=== PATIENT | male | born 1970 | race Caucasian/White ===

== ENCOUNTER 2024-03-19 05:16 | Inpatient (IN) | payer BC ==
--- NOTE | 2024-03-19 05:35 | ED ---
General Adult HPI - General Source: patient, RN notes reviewed, old records reviewed Mode of arrival: wheelchair Limitations: no limitations <Wes Montejo - Last Filed: 03/19/24 06:58> <Raul Mayberry - Last Filed: 03/19/24 11:11> - General Chief complaint: Chest Pain Stated complaint: Chest Pain Time Seen by Provider: 03/19/24 05:22 - History of Present Illness Initial comments: 53-year-old male presenting with left-sided chest pain radiating into the left shoulder. Pain is present over the past 1 to 2 days but significantly worse this morning. Pain is worse with inspiration. He has no prior history of CAD, no history of DVT or PE. Denies associated nausea or vomiting, no abdominal pain. Patient is a non-smoker. No lower extremity pain or swelling. (Wes Montejo) - Related Data Allergies Allergy/AdvReac Type Severity Reaction Status Date / Time cefpodoxime AdvReac Chest Pain Verified 03/19/24 05:21 Review of Systems ROS Other: All systems not noted in ROS Statement are negative. <Wes Montejo - Last Filed: 03/19/24 06:58> ROS Other: All systems not noted in ROS Statement are negative. <Raul Mayberry - Last Filed: 03/19/24 11:11> ROS Statement: Those systems with pertinent positive or pertinent negative responses have been documented in the HPI. Past Medical History Additional Past Medical History / Comment(s): BPH with IDC History of Any Multi-Drug Resistant Organisms: None Reported Past Surgical History: No Surgical Hx Reported Past Psychological History: No Psychological Hx Reported Smoking Status: Never smoker Past Alcohol Use History: None Reported Past Drug Use History: None Reported <Wes Montejo - Last Filed: 03/19/24 06:58> General Exam Limitations: no limitations General appearance: alert, in no apparent distress Head exam: Present: atraumatic, normocephalic Eye exam: Present: normal appearance, PERRL ENT exam: Present: normal exam Neck exam: Present: normal inspection Respiratory exam: Present: normal lung sounds bilaterally. Absent: respiratory distress, wheezes Cardiovascular Exam: Present: regular rate, normal rhythm GI/Abdominal exam: Present: soft. Absent: distended, tenderness Extremities exam: Present: normal inspection, normal capillary refill. Absent: pedal edema, calf tenderness Neurological exam: Present: alert, oriented X3, CN II-XII intact. Absent: motor sensory deficit Skin exam: Present: warm, dry <GustaboWes Arnie - Last Filed: 03/19/24 06:58> Course Vital Signs 03/19/24 03/19/24 03/19/24 05:17 05:34 07:00 Temperature 98.1 F 98.4 F Pulse Rate 93 96 Pulse Rate [ 93 Left Sitting Radial] Respiratory 18 22 Rate Blood Pressure 137/92 140/98 O2 Sat by Pulse 100 94 L Oximetry 03/19/24 03/19/24 07:32 09:52 Temperature Pulse Rate 96 84 Pulse Rate [ Left Sitting Radial] Respiratory 16 16 Rate Blood Pressure 122/90 114/80 O2 Sat by Pulse 92 L 97 Oximetry Medical Decision Making - Lab Data Result diagrams: 03/19/24 05:37 03/19/24 05:37 <Wes Montejo - Last Filed: 03/19/24 06:58> - Lab Data Result diagrams: 03/19/24 05:37 03/19/24 05:37 <Raul Mayberry - Last Filed: 03/19/24 11:11> - Medical Decision Making Was pt. sent in by a medical professional or institution (KRISTI Dillon, COMMUNITY DEVELOPMENT WORKER, urgent care, hospital, or group home...) When possible be specific @ -No Did you speak to anyone other than the patient for history (EMS, parent, family, police, friend...)? What history was obtained from this source @ -No Did you review nursing and triage notes (agree or disagree)? Why? @ -I reviewed and agree with nursing and triage notes Were old charts reviewed (outside hosp., previous admission, EMS record, old EKG, old radiological studies, urgent care reports/EKG's, group home records)? Report findings @ -No old charts were reviewed Differential Chest Pain: Stable Angina, Unstable Angina, STEMI, NSTEMI Aortic Dissection, Pneumothorax, Musculoskeletal, Esophageal Spasm GERD, Cholecystitis, Pancreatitis, Zoster, this is not meant to be an all-inclusive list. EKG interpreted by me (3pts min.). @ -Sinus rhythm rate of 99, MS interval 153, QRS duration 85, QTc 401, no ST segment elevation EKG at 621 showing sinus rhythm with a rate of 89, MS interval 155, QRS duration 86, QTc [address] segment elevation. X-rays interpreted by me (1pt min.). @ -None done CT interpreted by me (1pt min.). @ -CT angiography has been ordered, results pending U/S interpreted by me (1pt. min.). @ -None done What testing was considered but not performed or refused? (CT, X-rays, U/S, labs)? Why? @ -None What meds were considered but not given or refused? Why? @ -None Did you discuss the management of the patient with other professionals (professionals i.e. DrNichole, PA, COMMUNITY DEVELOPMENT WORKER, lab, RT, psych nurse, social services designee, bariatric nurse, teacher, financial officer, caser)? Give summary @ -No Was smoking cessation discussed for >3mins.? @ -No Was critical care preformed (if so, how long)? @ -No Were there social determinants of health that impacted care today? How? (Homelessness, low income, unemployed, alcoholism, drug addiction, transpo rtation, low edu. Level, literacy, decrease access to med. care, [facility] [facility], rehab)? @ -No Was there de-escalation of care discussed even if they declined (Discuss DNR or withdrawal of care, Hospice)? DNR status @ -No What co-morbidities impacted this encounter? (DM, HTN, Smoking, COPD, CAD, Cancer, CVA, ARF, Chemo, Hep., AIDS, mental health diagnosis, sleep apnea, morbid obesity)? @ -None Was patient admitted / discharged? Hospital course, mention meds given and route, prescriptions, significant lab abnormalities, going to OR and other pertinent info. @53-year-old male with left-sided chest pain, worse with inspiration, EKG is sinus without ST segment elevation this is repeated in the emergency department without change. Patient has normal CBC, normal CMP, positive D-dimer. There is concern for PE as well as aortic pathology. CT has been ordered results are pending. Care is signed out at shift change to Dr. Mayberry awaiting these results. (Wes Montejo) Was patient admitted / discharged? Hospital course, mention meds given and route, prescriptions, significant lab abnormalities, going to OR and other pertinent info. @ -Patient was signed out to me by Dr. Montejo. Patient's CAT scan was interpreted by myself but patient's CAT scan showed no aortic dissection. Showed no pulmonary embolism. I reviewed the radiology study as well and they agreed with that. Patient does have a left-sided lower lobe pneumonia. Patient will be treated with antibiotics. I spoke with sound physicians they agreed to admit the patient admit the patient wrote admitting orders. I consulted pulmonary. I also consulted urology because patient has a Ramos cath in secondary to a prostate issue and patient was septic previously for urinary tract infection. Patient was in severe pain when he arrived secondary to pneumonia. Patient did not want to go home he was concerned the pain will come back and be as severe as it was earlier. Undiagnosed new problem with uncertain prognosis? @ -No Drug Therapy requiring intensive monitoring for toxicity (Heparin, Nitro, Insulin, Cardizem)? @ -No Were any procedures done? @ -No Diagnosis/symptom? @ -Pneumonia Acute, or Chronic, or Acute on Chronic? @ -Acute Uncomplicated (without systemic symptoms) or Complicated (systemic symptoms)? @ -Complicated Side effects of treatment? @ -No Exacerbation, Progression, or Severe Exacerbation? @ -No Poses a threat to life or bodily function? How? (Chest pain, USA, PA, pneumonia, PE, COPD, DKA, ARF, appy, cholecystitis, CVA, Diverticulitis, Homicidal, Suicidal, threat to staff... and all critical care pts) @ -Yes this could lead to sepsis and endorgan dysfunction (Raul Mayberry) - Lab Data Lab Results 03/19/24 03/19/24 03/19/24 Range/Units 05:37 05:37 05:37 WBC 12.1 H (3.8-10.6) k/uL RBC 5.22 (4.30-5.90) m/uL Hgb 15.1 (13.0-17.5) gm/dL Hct 46.9 (39.0-53.0) % MCV 89.8 (80.0-100.0) fL MCH 29.0 (25.0-35.0) pg MCHC 32.3 (31.0-37.0) g/dL RDW 12.6 (11.5-15.5) % Plt Count 219 (150-450) k/uL MPV 7.9 Neutrophils % 77 % Lymphocytes % 14 % Monocytes % 6 % Eosinophils % 1 % Basophils % 1 % Neutrophils # 9.4 H (1.3-7.7) k/uL Lymphocytes # 1.7 (1.0-4.8) k/uL Monocytes # 0.7 (0-1.0) k/uL Eosinophils # 0.2 (0-0.7) k/uL Basophils # 0.1 (0-0.2) k/uL PT 11.1 (10.0-12.5) sec INR 1.0 (<1.2) APTT 24.1 (22.0-30.0) sec D-Dimer 2.93 H (<0.60) mg/L FEU Sodium 140 (137-145) mmol/L Potassium 4.4 (3.5-5.1) mmol/L Chloride 108 H (98-107) mmol/L Carbon Dioxide 23 (22-30) mmol/L Anion Gap 9 mmol/L BUN 18 (9-20) mg/dL Creatinine 1.00 (0.66-1.25) mg/dL Est GFR (CKD-EPI)AfAm >90 (>60 ml/min/1.73 sqM) Est GFR (CKD-EPI)NonAf 87 (>60 ml/min/1.73 sqM) Glucose 111 H (74-99) mg/dL Plasma Lactic Acid Louis (0.7-2.0) mmol/L Calcium 9.4 (8.4-10.2) mg/dL Magnesium 1.9 (1.6-2.3) mg/dL Total Bilirubin 0.9 (0.2-1.3) mg/dL AST 27 (17-59) U/L ALT 35 (4-49) U/L Alkaline Phosphatase 92 (38-126) U/L Troponin I (0.000-0.034) ng/mL Total Protein 7.1 (6.3-8.2) g/dL Albumin 4.2 (3.5-5.0) g/dL Lipase 271 (23-300) U/L Urine Color Urine Appearance (Clear) Urine pH (5.0-8.0) Ur Specific [place] (1.001-1.035) Urine Protein (Negative) Urine Glucose (UA) (Negative) Urine Ketones (Negative) Urine Blood (Negative) Urine Nitrite (Negative) Urine Bilirubin (Negative) Urine Urobilinogen (<2.0) mg/dL Ur Leukocyte Esterase (Negative) 03/19/24 03/19/24 03/19/24 Range/Units 05:37 07:45 10:03 WBC (3.8-10.6) k/uL RBC (4.30-5.90) m/uL Hgb (13.0-17.5) gm/dL Hct (39.0-53.0) % MCV (80.0-100.0) fL MCH (25.0-35.0) pg MCHC (31.0-37.0) g/dL RDW (11.5-15.5) % Plt Count (150-450) k/uL MPV Neutrophils % % Lymphocytes % % Monocytes % % Eosinophils % % Basophils % % Neutrophils # (1.3-7.7) k/uL Lymphocytes # (1.0-4.8) k/uL Monocytes # (0-1.0) k/uL Eosinophils # (0-0.7) k/uL Basophils # (0-0.2) k/uL PT (10.0-12.5) sec INR (<1.2) APTT (22.0-30.0) sec D-Dimer (<0.60) mg/L FEU Sodium (137-145) mmol/L Potassium (3.5-5.1) mmol/L Chloride (98-107) mmol/L Carbon Dioxide (22-30) mmol/L Anion Gap mmol/L BUN (9-20) mg/dL Creatinine (0.66-1.25) mg/dL Est GFR (CKD-EPI)AfAm (>60 ml/min/1.73 sqM) Est GFR (CKD-EPI)NonAf (>60 ml/min/1.73 sqM) Glucose (74-99) mg/dL Plasma Lactic Acid Louis 1.7 (0.7-2.0) mmol/L Calcium (8.4-10.2) mg/dL Magnesium (1.6-2.3) mg/dL Total Bilirubin (0.2-1.3) mg/dL AST (17-59) U/L ALT (4-49) U/L Alkaline Phosphatase (38-126) U/L Troponin I <0.012 (0.000-0.034) ng/mL Total Protein (6.3-8.2) g/dL Albumin (3.5-5.0) g/dL Lipase (23-300) U/L Urine Color Light Yellow Urine Appearance Clear (Clear) Urine pH 7.5 (5.0-8.0) Ur Specific [place] >1.050 H (1.001-1.035) Urine Protein Trace H (Negative) Urine Glucose (UA) Negative (Negative) Urine Ketones Negative (Negative) Urine Blood Negative (Negative) Urine Nitrite Negative (Negative) Urine Bilirubin Negative (Negative) Urine Urobilinogen <2.0 (<2.0) mg/dL Ur Leukocyte Esterase Negative (Negative) Critical Care Time Critical Care Time: Yes Total Critical Care Time: 35 <Raul Mayberry - Last Filed: 03/19/24 11:11> Disposition <Wes Montejo - Last Filed: 03/19/24 06:58> Time of Disposition: 11:10 <Raul Mayberry - Last Filed: 03/19/24 11:11> Clinical Impression: Pneumonia Disposition: ADMITTED IP TO THIS HOSP Referrals: None,Stated [Primary Care Provider] - 1-2 days
[2024-03-19] MEDS: HYDROmorphone 0.5 MG/0.5 ML SYRINGE IVP STA (05:40)
[2024-03-19 05:53] LABS: Basophils # (A) 0.1 k/uL (0-0.2); Basophils % (A) 1 %; Eosinophils # (A) 0.2 k/uL (0-0.7); Eosinophils % (A) 1 %; HCT 46.9 % (39.0-53.0); HGB 15.1 gm/dL (13.0-17.5); Lymphocytes # (A) 1.7 k/uL (1.0-4.8); Lymphocytes % (A) 14 %; MCHC 32.3 g/dL (31.0-37.0); MCV 89.8 fL (80.0-100.0); Mean Platelet Volume 7.9; Monocytes # (A) 0.7 k/uL (0-1.0); Monocytes % (A) 6 %; Neutrophils # (A) 9.4 k/uL (1.3-7.7); Neutrophils % (A) 77 %; Platelet Count 219 k/uL (150-450); RBC 5.22 m/uL (4.30-5.90); RDW 12.6 % (11.5-15.5); WBC 12.1 k/uL (3.8-10.6)
[2024-03-19 06:16] LABS: Partial Thromboplastin Time 24.1 sec (22.0-30.0); Prothrombin Time 11.1 sec (10.0-12.5)
[2024-03-19 06:23] LABS: ALT 35 U/L (4-49); AST 27 U/L (17-59); African American GFR (CKD) >90 (>60 ml/min/1.73 sqM); Albumin 4.2 g/dL (3.5-5.0); Alkaline Phosphatase 92 U/L (38-126); Anion Gap 9 mmol/L; Blood Urea Nitrogen 18 mg/dL (9-20); Calcium 9.4 mg/dL (8.4-10.2); Carbon Dioxide 23 mmol/L (22-30); Chloride 108 mmol/L (98-107); Glucose 111 mg/dL (74-99); Lipase 271 U/L (23-300); Magnesium 1.9 mg/dL (1.6-2.3); Non-African American GFR(CKD) 87 (>60 ml/min/1.73 sqM); Potassium 4.4 mmol/L (3.5-5.1); Sodium 140 mmol/L (137-145); Total Bilirubin 0.9 mg/dL (0.2-1.3); Total Protein 7.1 g/dL (6.3-8.2)
[2024-03-19] MEDS: HYDROmorphone 1 MG/ML 1 ML SYRINGE IVP STA (06:44)
[2024-03-19] MEDS: LORazepam 2 MG/ML INJ IV STA (06:58)
--- NOTE | 2024-03-19 07:08 | XR ---
EXAM: XR Chest, 2 Views CLINICAL HISTORY: Chest Pain TECHNIQUE: Frontal and lateral views of the chest. COMPARISON: No relevant prior studies available. FINDINGS: Lungs: Lung volumes are within normal limits. There is no evidence of airspace consolidation. No pulmonary edema. Minimal atelectasis or scarring in the lingula. Pleural space: Unremarkable. No pneumothorax. No significant pleural effusions. Heart: Unremarkable. No cardiomegaly. Mediastinum: Unremarkable. Normal mediastinal contour. Bones/joints: Unremarkable. No acute fracture. IMPRESSION: There is no evidence of acute cardiopulmonary abnormality.
--- NOTE | 2024-03-19 07:37 | CT ---
EXAMINATION TYPE: CT angio thor/abd pel aorta CT DLP: 2648.8 mGycm, Automated exposure control for dose reduction was used. DATE OF EXAM: 03/19/2024 7:28 AM COMPARISON: Same day chest x-ray. CLINICAL INDICATION:Male, 53 years old with history of Elevated Dimer; PHH, mid chest pain, elevated d dimer. best imaging due to patient pain level and breathing pattern. prior xr in pacs TECHNIQUE: Dissection protocol: Multiple axial CT images of the chest, abdomen, and pelvis were obtai chetan prior and to the administration of IV contrast. 3-D reformats and maximum intensity projection fo rmat were performed on a separate workstation. Contrast used:100 ml mL of Isovue 370 with IV Contrast, Oral contrast used: FINDINGS: Examinations are limited by patient motion and streak artifacts. ARTERIAL VASCULATURE: The thoracic aorta is normal in course and caliber. There is no evidence of aor tic dissection, aneurysm or acute aortic injury. Great arch vessels patent and normal in course and c aliber. Abdominal aorta appears within normal limits, there is no evidence of aneurysm or dissection. Unremar kable proximal mesenteric and renal arteries. Normal aortic bifurcation. Visualized iliofemoral syste ms are within normal limits. PULMONARY ARTERIAL VASCULATURE: Exam is not tailored for the pulmonary arteries. The pulmonary trunk appears enlarged measuring 3.7 cm. No large saddle/central embolus is seen. Evaluation further periph erally is limited. VENOUS SYSTEM: Unremarkable. Lungs/pleura: There is respiratory motion artifact. Opacity most suggestive of dependent atelectasis in the right lower lung. Opacity in the left lower lung appears more conspicuous and suspicious for p ossible pneumonic infiltrate. There does appear to be a small left pleural effusion, and possible tra ce right pleural effusion. No visualized pneumothorax. Heart: Within normal limits. Mediastinum: No enlarged nodes by CT size criteria. Lower Neck: No significant findings. Thyroid appears grossly unremarkable. Abdomen: Liver: Unremarkable. Gallbladder and Bile ducts: Unremarkable. Pancreas: Unremarkable. Spleen: Unremarkable. Adrenal glands: Unremarkable. Kidneys and Ureters: Kidneys enhance symmetrically. There is no mass or visualized calculus. Mildly p rominent left extrarenal pelvis without dilated ureter.. Bladder: Mildly distended despite the presence of a Ramos balloon and catheter within the lumen.. Reproductive: Prostate appears enlarged measuring about 5.4 cm transverse.. Stomach and Bowel: Stomach and small bowel appear nondistended.. No evidence of bowel obstruction. B ubble of gas of the duodenum versus diverticulum. Normal appendix. Mild/moderate stool throughout the colon without acute abnormality seen. Peritoneum: No evidence of pneumoperitoneum, free fluid, or adenopathy. Musculoskeletal: Moderate degenerative changes of the right glenohumeral joint with postoperative lianet nges. Mild degenerative change of the left. Mild degenerative changes of the thoracolumbar spine with out evidence of an acute abnormality. There is likely step-off artifact in the sternal body and not f racture. Lymph nodes: No evidence of lymphadenopathy. Abdominal wall/soft tissues: Unremarkable. IMPRESSION: 1. No evidence of aortic dissection or aneurysm. 2. Enlarged pulmonary trunk, can be seen with pulmonary hypertension. 3. Possible pneumonic infiltrate or aspiration in the left lung base. Small left pleural effusion. 4. No acute abnormality detected within the abdomen or pelvis.
[2024-03-19] MEDS: PIPERACILLIN-TAZOBACTAM 3.375 GM in SODIUM CHLORIDE 0.9% 100 ML IVPB STA (08:12)
[2024-03-19] MEDS: ACETAMINOPHEN IV (For NPO) 1,000 MG in EMPTY BAG 1 BAG IVPB ONE (08:12)
[2024-03-19] MEDS: SODIUM CHLORIDE 0.9% 1,000 ML IV SCH (08:13)
[2024-03-19] MEDS: KETOROLAC 15 MG/ML 1 ML VIAL IVP STA (09:46)
[2024-03-19] MEDS: AZITHROMYCIN 500 MG in SODIUM CHLORIDE 0.9% 250 ML IVPB STA (09:51)
[2024-03-19 10:26] LABS: Appearance,Urine Clear (Clear); Bilirubin,Urine Negative (Negative); Blood,Urine Negative (Negative); Color,Urine Light Yellow; Glucose,Urine (UA) Negative (Negative); Ketones,Urine Negative (Negative); Leukocyte Esterase,Urine Negative (Negative); Nitrite,Urine Negative (Negative); PH, Urine 7.5 (5.0-8.0); Protein,Urine Trace (Negative); Specific Gravity,Urine >1.050 (1.001-1.035); Urobilinogen,Urine <2.0 mg/dL (<2.0)
[2024-03-19] MEDS ORDERED: PNEUMONIA PROTOCOL UTILIZED 1 EACH MISC PO PRN (11:11)
--- NOTE | 2024-03-19 13:06 | P.GSCN ---
History of Present Illness Consult date: 03/19/24 History of present illness: 53 yo male admitted for left sided chest pain secondary to pneumonia. We were asked to see for a recent history of uti and urine retention. About 1 mos ago he presented to [facility]. He was diagnosed with a uti. He ended up at [facility] with urine retention and a subsequent catheter. The catheter was removed only for him to go back into retention. He was given about 10 days of ab. He states that he had an elevated temperature when he first had the uti. He never had voiding issues prior to the uti. He was eventually placed on flomax. He has been healthy for years. He hasnt seen a doctor for years. He denies hematuria or stones. Review of Systems All systems: negative - Constitutional Denies fever, Denies weight loss - EENT Eyes: denies blurred vision Ears, nose, mouth and throat: Denies dysphagia - Cardiovascular Denies chest pain, Denies shortness of breath - Respiratory Denies cough, Denies 7 - Gastrointestinal Reports as per HPI - Genitourinary Denies dysuria, Denies hematuria - Integumentary Denies rash, Denies unusual bruising - Neurological Denies headaches, Denies syncope - Hematologic/Lymphatic Denies easy bleeding, Denies easy bruising Past Medical History Additional Past Medical History / Comment(s): BPH with IDC History of Any Multi-Drug Resistant Organisms: None Reported Past Surgical History: No Surgical Hx Reported Past Psychological History: No Psychological Hx Reported Smoking Status: Never smoker Past Alcohol Use History: None Reported Past Drug Use History: None Reported Medications and Allergies Home Medications Medication Instructions Recorded Confirmed Type Ciprofloxacin HCl [Cipro] 250 mg PO BID 03/19/24 03/19/24 History Tamsulosin [Flomax] 0.4 mg PO BID 03/19/24 03/19/24 History Allergies Allergy/AdvReac Type Severity Reaction Status Date / Time cefpodoxime AdvReac Chest Pain Verified 03/19/24 12:33 Surgical - Exam Vital Signs Temp Pulse Resp BP Pulse Ox 98.1 F 93 18 137/92 100 03/19/24 05:17 03/19/24 05:17 03/19/24 05:17 03/19/24 05:17 03/19/24 05:17 - General well developed, well nourished, no distress - Eyes normal ocular movement, no icteric - ENT no hearing loss, no congestion - Neck no masses, trachea midline - Respiratory normal respiratory effort, clear to auscultation - Abdomen Abdomen: soft, non tender, no guarding, no rigid, no rebound - Integumentary no rash, no abnormal pigmentation - Neurologic no disoriented, no combative - Psychiatric oriented to time, oriented to person, oriented to place, speech is normal, memory intact Results - Labs 03/19/24 05:37 03/19/24 05:37 Abnormal Lab Results - Last 24 Hours (Table) 03/19/24 03/19/24 03/19/24 Range/Units 05:37 05:37 05:37 WBC 12.1 H (3.8-10.6) k/uL Neutrophils # 9.4 H (1.3-7.7) k/uL D-Dimer 2.93 H (<0.60) mg/L FEU Chloride 108 H (98-107) mmol/L Glucose 111 H (74-99) mg/dL Ur Specific [place] (1.001-1.035) Urine Protein (Negative) 03/19/24 Range/Units 10:03 WBC (3.8-10.6) k/uL Neutrophils # (1.3-7.7) k/uL D-Dimer (<0.60) mg/L FEU Chloride (98-107) mmol/L Glucose (74-99) mg/dL Ur Specific [place] >1.050 H (1.001-1.035) Urine Protein Trace H (Negative) Diabetes panel 03/19/24 Range/Units 05:37 Sodium 140 (137-145) mmol/L Potassium 4.4 (3.5-5.1) mmol/L Chloride 108 H (98-107) mmol/L Carbon Dioxide 23 (22-30) mmol/L BUN 18 (9-20) mg/dL Creatinine 1.00 (0.66-1.25) mg/dL Glucose 111 H (74-99) mg/dL Calcium 9.4 (8.4-10.2) mg/dL AST 27 (17-59) U/L ALT 35 (4-49) U/L Alkaline Phosphatase 92 (38-126) U/L Total Protein 7.1 (6.3-8.2) g/dL Albumin 4.2 (3.5-5.0) g/dL Calcium panel 03/19/24 Range/Units 05:37 Calcium 9.4 (8.4-10.2) mg/dL Albumin 4.2 (3.5-5.0) g/dL Pituitary panel 03/19/24 Range/Units 05:37 Sodium 140 (137-145) mmol/L Potassium 4.4 (3.5-5.1) mmol/L Chloride 108 H (98-107) mmol/L Carbon Dioxide 23 (22-30) mmol/L BUN 18 (9-20) mg/dL Creatinine 1.00 (0.66-1.25) mg/dL Glucose 111 H (74-99) mg/dL Calcium 9.4 (8.4-10.2) mg/dL Adrenal panel 03/19/24 Range/Units 05:37 Sodium 140 (137-145) mmol/L Potassium 4.4 (3.5-5.1) mmol/L Chloride 108 H (98-107) mmol/L Carbon Dioxide 23 (22-30) mmol/L BUN 18 (9-20) mg/dL Creatinine 1.00 (0.66-1.25) mg/dL Glucose 111 H (74-99) mg/dL Calcium 9.4 (8.4-10.2) mg/dL Total Bilirubin 0.9 (0.2-1.3) mg/dL AST 27 (17-59) U/L ALT 35 (4-49) U/L Alkaline Phosphatase 92 (38-126) U/L Total Protein 7.1 (6.3-8.2) g/dL Albumin 4.2 (3.5-5.0) g/dL Assessment and Plan Assessment: Impression: pneumonia. acute prostatitis with seconday urine retention Recommendations: It sounds as if his prostattits was not treated long enough. Urine retention is not uncommon associated with the acute swelling and discomfort associated with prostatitis. Given the description of his event he would need at least 30 days of ab usually cipro or bactrim would be the best choice if the bacteria is susceptible to these ab as they have the best penetration into the prostate. I would leave him on the floamx. He should get a voiding trial before he goes home to make sure he can empty his bladder. We w ill follow Time with Patient: Greater than 30 (1)
--- NOTE | 2024-03-19 13:08 | P.HPIM ---
History of Present Illness H&P Date: 03/19/24 History of Presenting Illness: Patient is a very pleasant 53-year-old male with a past medical history of BPH and currently Ramos catheter dependent after recent hospitalization for urosepsis secondary to acute prostatitis with urinary retention. He presented to the hospital with a chief complaint of left-sided chest pain. Patient reports intermittent left-sided chest pain waxing and waning over the past 2 months and initially associated it as an adverse reaction to an antibiotic because when he stopped taking the antibiotic his pain went away, however patient reports yesterday he again developed significant pain to left anterior chest radiating up into his left shoulder. Patient reports pain is worse with inspiration and lying down. He reports pain was so severe he was pacing the floor all night and upon telling his this morning she brought him to the hospital concerned that he was having a heart attack. Patient denies having any cough or congestion, shortness of breath, palpitations, fevers, chills, diaphoresis, headache, lightheadedness, nausea, vomiting, or experiencing any numbness/tingling/weakness/swelling in his extremities. Upon arrival to our facility, patient underwent evaluation in the emergency department. Vital signs reviewed. Blood pressure 137/92, heart rate 93, respiratory rate 18, temp 98.1 F, and SpO2 100% on room air. EKG completed showing normal sinus rhythm beats per minute no significant T wave or ST abnormalities upon personal review and interpretation showing prominent Q waves inferior leads II, III, and aVF as well as lateral leads V5 and V6. Chest x-ray completed negative for acute cardiopulmonary process. Labs completed and reviewed. CBC showing leukocytosis with WBC count of 12.1. BMP showing hyperchloremia with chloride of 108. Blood glucose was 111. Lactic acid normal findings at 1.7. Magnesium 1.9. Liver profile unremarkable. Lipase normal findings at 271. And troponin was negative at less than 0.012. Coagulation profile showing elevated D-dimer of 2.93. Patient underwent CTA chest showing no large or saddlebag/central emboli is noted but reporting enlarged pulmonary trunk with concerns of pneumonic infiltrate in the left lung base with small left pleural effusion. Patient admitted under our services with consultation to pulmonology at this time. Review of systems: Pertinent positives and negatives as discussed in HPI, a complete review of systems was performed and all other systems are negative. Physical exam: Vital signs reviewed and stable. General: Nontoxic, no distress and appears stated age. Derm: Skin warm and dry, normal coloration for ethnicity. Head: Atraumatic, normocephalic and symmetric. Eyes: EOMs intact, no lid lag, and anicteric sclera Mouth: no lip lesions, mucus membranes moist Cardiovascular: regular rate and rhythm with normal S1S2, no murmur, positive posterior tibial pulses bilaterally, and cap refill < 2 seconds. Lungs: Respirations even, regular, and unlabored on room air. Lungs CTA bilaterally, no rhonchi, no rales, no wheezing, and no accessory muscle usage. Reproducible pain to anterior left lateral chest reported upon inspiration and palpation. Abdominal: soft, nontender to palpation, no guarding, no appreciable organome mariya. Indwelling Ramos catheter in place. Ext: ROM intact. No gross muscle atrophy, no edema, no contractures Neuro: Speech clear, face symmetrical and CN II-XII grossly intact with no noted focal neuro deficits Psych: Alert and oriented to person, place, time, and situation. Appropriate and pleasant affect. Assessment and Plan of Care: Pneumonic infiltrate likely pneumonia left lower lobe Chest pain, likely secondary to pleurisy and costochondritis -Oxygenation to be administered and titrated as needed to maintain SPO2 equal to or greater than 92% -Telemetry monitoring. -Monitor pulse-oximetry -Duonebs as needed for SOB and/or wheezing -Somatic care and pain management with Tylenol 650 mg p.o. mild pain/fever, [place] 5/325 mg tablets as needed for moderate pain, and morphine 4 mg IVP every 4 hours as needed for severe pain -Incentive Spirometry -Antibiotics: Ceramics 500 mg daily and Zosyn 3.375 g every 8 hours. -Sputum culture, blood cultures, Legionella antigen -Pulmonary was consulted Acute prostatitis with urinary retention BPH with bladder outlet obstruction and currently Ramos catheter dependent Urology was consulted, appreciate recommendations. Continue Flomax 0.4 mg twice daily. CODE STATUS: Full code DVT prophylaxis: Lovenox Anticipated discharge date: Pending clinical course Anticipated discharge place: Pending clinical course Patient was seen independently by Nurse Practitioner. This document was prepared using [employer] dictation software. Please allow for errors in professor of communication and writing while rare they do occur. I reviewed the documentation as provided by the ARTURO above, who is the original author of this note. I agree with the documented assessment and plan, with the following changes: none Past Medical History Additional Past Medical History / Comment(s): BPH with IDC History of Any Multi-Drug Resistant Organisms: None Reported Past Surgical History: No Surgical Hx Reported Past Psychological History: No Psychological Hx Reported Smoking Status: Never smoker Past Alcohol Use History: None Reported Past Drug Use History: None Reported Medications and Allergies Home Medications Medication Instructions Recorded Confirmed Type Ciprofloxacin HCl [Cipro] 250 mg PO BID 03/19/24 03/19/24 History Tamsulosin [Flomax] 0.4 mg PO BID 03/19/24 03/19/24 History Allergies Allergy/AdvReac Type Severity Reaction Status Date / Time cefpodoxime AdvReac Chest Pain Verified 03/19/24 12:33 Physical Exam Osteopathic Statement: *. No significant issues noted on an osteopathic structural exam other than those noted in the History and Physical/Consult. Vitals: Vital Signs Temp Pulse Pulse Resp BP Pulse Ox 03/19/24 09:52 84 16 114/80 97 03/19/24 07:32 96 16 122/90 92 L 03/19/24 07:00 98.4 F 96 22 140/98 94 L 03/19/24 05:34 93 03/19/24 05:17 98.1 F 93 18 137/92 100 Intake and Output 03/18/24 03/19/24 03/19/24 22:59 06:59 14:59 Other: Weight 106.141 kg Results CBC & Chem 7: 03/19/24 05:37 03/19/24 05:37 Labs: Abnormal Lab Results - Last 24 Hours (Table) 03/19/24 03/19/24 03/19/24 Range/Units 05:37 05:37 05:37 WBC 12.1 H (3.8-10.6) k/uL Neutrophils # 9.4 H (1.3-7.7) k/uL D-Dimer 2.93 H (<0.60) mg/L FEU Chloride 108 H (98-107) mmol/L Glucose 111 H (74-99) mg/dL Ur Specific [place] (1.001-1.035) Urine Protein (Negative) 03/19/24 Range/Units 10:03 WBC (3.8-10.6) k/uL Neutrophils # (1.3-7.7) k/uL D-Dimer (<0.60) mg/L FEU Chloride (98-107) mmol/L Glucose (74-99) mg/dL Ur Specific [place] >1.050 H (1.001-1.035) Urine Protein Trace H (Negative)
[2024-03-19] MEDS: HYDROcodone/APAP 5-325MG 1 EACH TAB PO PRN (15:08)
[2024-03-19] MEDS: PIPERACILLIN-TAZOBACTAM 3.375 GM in SODIUM CHLORIDE 0.9% 100 ML IVPB SCH (16:55)
[2024-03-19] MEDS: TAMSULOSIN 0.4 MG CAP.ER.24H PO SCH (21:00)
[2024-03-19] MEDS: MORPHINE SULFATE 4 MG/ML SYRINGE IV PRN (23:03)
[2024-03-20] MEDS: ENOXAPARIN 40 MG/0.4 ML SYRINGE SQ SCH (07:33)
[2024-03-20] MEDS: AZITHROMYCIN 500 MG TAB PO SCH (07:41)
[2024-03-20] MEDS ORDERED: VANCOMYCIN IV PER PHARMACY 1 EACH MISC MISCELLANE PRN (10:40)
[2024-03-20] MEDS: methylPREDNISolone SOD SUCCI 125 MG/2 ML VIAL IV STA (10:54)
[2024-03-20] MEDS: VANCOMYCIN 2,000 MG in SODIUM CHLORIDE 0.9% 500 ML 500 ML IVPB ONE (13:04)
--- NOTE | 2024-03-20 13:09 | P.CNPUL ---
History of Present Illness Consult date: 03/20/24 Reason for consult: chest pain History of present illness: A 53-year-old male patient was admitted to the hospital yesterday because of severe pleuritic left-sided chest pain. The pain was quite extensive and developed over the past 24 to 48 hours. The patient is a healthy gentleman without any major issues. Recently, he had some issues with obstructive uropathy and UTI and prostatitis. He was seen at [facility] for obstructive uropathy and a Ramos catheter was inserted and was treated for urinary tract infection with sepsis. He was discharged home with a Ramos catheter in place pending further workup. The patient comes into the hospital, quite diaphoretic, complaining of severe pleuritic left-sided chest pain, he was afebrile and hemodynamically stable. Nevertheless, he did encounter some fever earlier prior to his hospitalization. He is currently on 2 L of oxygen by nasal cannula. White circles of 12 with a hemoglobin of 15.1, D-dimer is at 2.9 with the rest of the coagulation profile within normal, normal electrolytes, normal renal function, normal LFTs, normal UA. The patient underwent a chest x-ray in the emergency department that showed no significant abnormalities. Following that, the patient was given a CT angiogram of the thoracic aorta. This was a suboptimal study due to motion artifact and there is a concern for development of a left lower lobe pneumonia and small effusion. No evidence of any pulm embolism. No evidence of any dissection. No calf pain or tenderness. Noted the patient was taken oral cephalosporins on outpatient basis regarding his underlying urine tract infection. During this current hospital stay, the patient was started on IV Zosyn. He is receiving also morphine for pain control 4 mg every 4 hours. No reported aspiration. Review of Systems Constitutional: Reports fatigue, Reports lethargy, Reports sweats Eyes: denies as per HPI, denies blurred vision, denies bulging eye, denies decreased vision, denies diplopia, denies discharge, denies dry eye, denies irritation, denies itching, denies pain, denies photophobia, denies loss of peripheral vision, denies loss of vision, denies tunnel vision/blind spots Ears: deny: decreased hearing, ear discharge, earache, tinnitus Ears, nose, mouth and throat: Reports as per HPI Breasts: absent: as per HPI, gynecomastia Cardiovascular: Reports chest pain Respiratory: Reports dyspnea Gastrointestinal: Reports as per HPI Genitourinary: Reports as per HPI, Reports urinary frequency, Reports urinary hesitancy, Reports urinary retention Musculoskeletal: Reports as per HPI Musculoskeletal: absent: ankle pain, ankle stiffness, ankle swelling, as per HPI, elbow pain, elbow stiffness, elbow swelling, foot pain, foot stiffness, foot swelling, hand pain, hand stiffness, hand swelling, hip pain, hip stiffness, hip swelling, knee pain, knee stiffness, knee swelling, shoulder pain, shoulder stiffness, shoulder swelling, wrist pain, wrist stiffness, wrist swelling Integumentary: Reports as per HPI Neurological: Reports as per HPI Psychiatric: Reports as per HPI Endocrine: Reports as per HPI Hematologic/Lymphatic: Reports as per HPI Allergic/Immunologic: Reports as per HPI Past Medical History Additional Past Medical History / Comment(s): BPH with IDC,sepsis-recent hospital stay at [facility] 02/26/24-02/29/24 History of Any Multi-Drug Resistant Organisms: None Reported Past Surgical History: No Surgical Hx Reported Past Psychological History: No Psychological Hx Reported Smoking Status: Never smoker Past Alcohol Use History: None Reported Past Drug Use History: None Reported - Past Family History Father Family Medical History: Coronary Artery Disease (CAD), Myocardial Infarction (CA) Mother Family Medical History: Cancer, Coronary Artery Disease (CAD), Myocardial Infa rction (CA) Additional Family Medical History / Comment(s): ovarian cancer Medications and Allergies Home Medications Medication Instructions Recorded Confirmed Type Ciprofloxacin HCl [Cipro] 250 mg PO BID 03/19/24 03/19/24 History Tamsulosin [Flomax] 0.4 mg PO BID 03/19/24 03/19/24 History Allergies Allergy/AdvReac Type Severity Reaction Status Date / Time cefpodoxime AdvReac Chest Pain Verified 03/19/24 12:33 Physical Exam Vitals: Vital Signs Temp Pulse Pulse Resp BP BP Pulse Ox 03/20/24 07:30 97.7 F 83 18 129/87 93 L 03/20/24 02:00 99.6 F 89 124/85 95 03/19/24 20:00 98.8 F 99 18 128/84 96 03/19/24 16:00 98.7 F 83 16 114/76 99 03/19/24 15:09 99.3 F 95 20 122/86 98 03/19/24 13:16 84 16 115/81 98 03/19/24 11:24 81 20 111/78 96 Intake and Output 03/19/24 03/20/24 03/20/24 22:59 06:59 14:59 Intake Total 1100 Output Total 1100 700 Balance -1100 400 Intake: Intake, IV Titration 1100 Amount Piperacillin-Tazobactam 3 200 .375 gm In Sodium Chloride 0.9% 100 ml @ 25 mls/hr IVPB Q8HR GELY Rx# :[id number] Sodium Chloride 0.9% 1, 900 000 ml @ 75 mls/hr IV . [id number] GELY Rx#:[id number] Output: Urine 1100 700 Other: Voiding Method Indwelling Catheter Indwelling Catheter Weight 106.141 kg General appearance not in acute respiratory distress, currently on 2 L O2 cannula, complaining of pain across his left chest which is making him quite uncomfortable. Head exam was generally normal. There was no scleral icterus or corneal arcus. Mucous membranes were moist. Neck was supple and without jugular venous distension, thyromegaly, or carotid bruits. Carotids were easily palpable bilaterally. There was no adenopathy. Lung sounds are diminished in the left lung base along with some bronchial breath sounds. Air entry is limited due to his ongoing pain and difficult to take a deep breath. Cardiac exam revealed the PMI to be normally situated and sized. The rhythm was regular and no extrasystoles were noted during several minutes of auscultation. The first and second heart sounds were normal and physiologic splitting of the second heart sound was noted. There were no murmurs, rubs, clicks, or gallops. Abdominal exam revealed normal bowel sounds. The abdomen was soft, non-tender, and without masses, organomegaly, or appreciable enlargement of the abdominal aorta. Examination of the extremities revealed easily palpable radial, femoral and pedal pulses. There was no cyanosis, clubbing or edema. Examination of the skin revealed no evidence of significant rashes, suspicious appearing nevi or other concerning lesions. The patient has a Ramos catheter in place. Results - Laboratory Findings CBC and BMP: 03/19/24 05:37 03/19/24 05:37 PT/INR, D-dimer PT 11.1 sec (10.0-12.5) 03/19/24 05:37 INR 1.0 (<1.2) 03/19/24 05:37 D-Dimer 2.93 mg/L FEU (<0.60) H 03/19/24 05:37 Abnormal lab findings: Abnormal Labs 03/19/24 03/19/24 03/19/24 05:37 05:37 05:37 WBC 12.1 H Neutrophils # 9.4 H D-Dimer 2.93 H Chloride 108 H Glucose 111 H Ur Specific [place] Urine Protein 03/19/24 10:03 WBC Neutrophils # D-Dimer Chloride Glucose Ur Specific [place] >1.050 H Urine Protein Trace H - Diagnostic Findings Chest x-ray: image reviewed Assessment and Plan Plan: Acute hypoxic respiratory failure currently on 2 L of oxygen by nasal cannula Acute left-sided pleuritic chest pain, excruciating, with some vague infiltration of the lung base bilaterally more so on the left. CT of the aorta was done and showed no evidence of any pulm embolism. No saddle embolism. No aortic dissection. There is some concern for left lower lobe consolidation. Note that the CAT scan images were somewhat suboptimal due to motion artifact. Suspect an underlying development of a necrotizing left lower lobe pneumonia. Shortness of breath secondary to above Mild leukocytosis Obstructive uropathy/BPH with urine tract infection prostatitis and the patient has been given a Ramos catheter at [facility]. He was also taken a course of antibiotics on outpatient basis. Plan Provide the patient adequate pain control with morphine Titrate oxygen flow to maintain a saturation above 90%, currently on 2 L Incentive spirometer Start patient broad-spectrum antibiotic send suggest Zosyn and vancomycin covering for hospital-acquired pathogens Check procalcitonin levels Check lower extremity Dopplers Add IV Solu-Medrol Continue bronchodilators Repeat a noncontrast CAT scan of the chest to evaluate the parenchymal findings and left lower lobe Fluid viral screen Will continue to follow.
--- NOTE | 2024-03-20 13:43 | P.PN ---
Subjective Progress Note Date: 03/20/24 Hospital Course: Patient is a very pleasant 53-year-old male with a past medical history of BPH and currently Ramos catheter dependent after recent hospitalization for urosepsis secondary to acute prostatitis with urinary retention. He presented to the hospital with a chief complaint of left-sided chest pain. Patient reports intermittent left-sided chest pain waxing and waning over the past 2 months and initially associated it as an adverse reaction to an antibiotic because when he stopped taking the antibiotic his pain went away, however patient reports yesterday he again developed significant pain to left anterior chest radiating up into his left shoulder. Patient reports pain is worse with inspiration and lying down. He reports pain was so severe he was pacing the floor all night and upon telling his this morning she brought him to the hospital concerned that he was having a heart attack. Patient denies having any cough or congestion, shortness of breath, palpitations, fevers, chills, diaphoresis, headache, lightheadedness, nausea, vomiting, or experiencing any numbness/tingling/weakness/swelling in his extremities. Upon arrival to our facility, patient underwent evaluation in the emergency department. Vital signs reviewed. Blood pressure 137/92, heart rate 93, respiratory rate 18, temp 98.1 F, and SpO2 100% on room air. EKG completed showing normal sinus rhythm beats per minute no significant T wave or ST abnormalities upon personal review and interpretation showing prominent Q waves inferior leads II, III, and aVF as well as lateral leads V5 and V6. Chest x-ray completed negative for acute cardiopulmonary process. Labs completed and reviewed. CBC showing leukocytosis with WBC count of 12.1. BMP showing hyperchloremia with chloride of 108. Blood glucose was 111. Lactic acid normal findings at 1.7. Magnesium 1.9. Liver profile unremarkable. Lipase normal findings at 271. And troponin was negative at less than 0.012. Coagulation profile showing elevated D-dimer of 2.93. Patient underwent CTA chest showing no large or saddlebag/central emboli is noted but reporting enlarged pulmonary trunk with concerns of pneumonic infiltrate in the left lung base with small left pleural effusion. Patient admitted under our services with consultation to pulmonology at this time. Physical exam: Patient seen and fully evaluated at bedside this morning. Shortness of breath appears to have worsened, patient diaphoretic and is now requiring oxygen supplementation with SpO2 93% on 2 L. Patient had low-grade temp overnight of 99.6 F. He continues to report significant pain to left anterior chest and left flank worse with inspiration. Vital signs reviewed and stable. General: Nontoxic, no distress and appears stated age. Derm: Skin warm and dry, normal coloration for ethnicity. Head: Atraumatic, normocephalic and symmetric. Eyes: EOMs intact, no lid lag, and anicteric sclera Mouth: no lip lesions, mucus membranes moist Cardiovascular: regular rate and rhythm with normal S1S2, no murmur, positive posterior tibial pulses bilaterally, and cap refill < 2 seconds. Lungs: Respirations even, regular, and unlabored on room air. Lungs CTA bilaterally, no rhonchi, no rales, no wheezing, and no accessory muscle usage. Reproducible pain to anterior left lateral chest reported upon inspiration and palpation. Abdominal: soft, nontender to palpation, no guarding, no appreciable organomegaly. Indwelling Ramos catheter in place. Ext: ROM intact. No gross muscle atrophy, no edema, no contractures Neuro: Speech clear, face symmetrical and CN II-XII grossly intact with no noted focal neuro deficits Psych: Alert and oriented to person, place, time, and situation. Appropriate and pleasant affect. Assessment and Plan of Care: Pneumonic infiltrate likely pneumonia left lower lobe Chest pain, likely secondary to pleurisy and costochondritis -Oxygenation to be administered and titrated as needed to maintain SPO2 equal to or greater than 92% -Telemetry monitoring. -Monitor pulse-oximetry -Will start patient on steroids secondary to now requiring oxygen supplementation, order placed for Solu-Medrol 125 mg IVP x 1 dose followed by 60 mg IV every 8 hours. -Discussed in depth with regulatory affairs intern, will repeat CT without contrast this morning to follow-up on infiltrate/effusion. -Order placed for procalcitonin, MRSA/MSSA screening, Cepheid 4 Plex, and we will order a chlamydia rRNA as chlamydia can cause prosatitis and pnumonia as well. -Legionella antigen pending -Continue Duonebs schedule IV times daily and as needed for SOB and/or wheezing -Somatic care and pain management with Tylenol 650 mg p.o. mild pain/fever, [place] 5/325 mg tablets as needed for moderate pain, and morphine 4 mg IVP every 4 hours as needed for severe pain -Incentive Spirometry -Antibiotics: Broadened antibiotics per recommendations of regulatory affairs intern with Vancomycin 2 g every 12 hours and Zosyn 3.375 g every 8 hours. Will monitor renal function closely to monitor for any signs of vancomycin induced renal toxicity. -Follow-up on sputum culture, blood cultures, Legionella antigen -Pulmonary following and discussed plan of care with regulatory affairs intern, Dr. Ra mcgill. Acute prostatitis with urinary retention BPH with bladder outlet obstruction and currently Ramos catheter dependent Urology following, reviewed documentation in chart. Continue Flomax 0.4 mg twice daily. Data and imaging reviewed: Repeat lactate 1.3. Repeat morning chest x-ray completed showing worsening haziness and with low lung volumes and concerns of enlarging left pleural effusion/infiltrate on pe rsonal review and interpretation, awaiting radiologist report. Vital signs reviewed. Blood pressure 129/87, heart rate 83, respiratory rate 18, temp 97.7 F, SpO2 of 93% on 2 L. CODE STATUS: Full code DVT prophylaxis: Lovenox Anticipated discharge date: Pending clinical course Anticipated discharge place: Pending clinical course Patient was seen independently by Nurse Practitioner. This document was prepared using [employer] dictation software. Please allow for errors in neighborhood service center director while rare they do occur. I reviewed the documentation as provided by the ARTURO above, who is the original author of this note. I agree with the documented assessment and plan, with the following changes: none Objective - Vital Signs Vital signs: Vital Signs Temp 97.7 F 03/20/24 07:30 Pulse 83 03/20/24 07:30 Resp 18 03/20/24 07:30 BP 129/87 03/20/24 07:30 Pulse Ox 93 L 03/20/24 07:30 FiO2 Intake & Output 03/19/24 03/20/24 03/20/24 18:59 06:59 18:59 Intake Total 1100 Output Total 1100 700 Balance -1100 400 Weight 106.141 kg Intake: Intake, IV Titration 1100 Amount Piperacillin-Tazobactam 3 200 .375 gm In Sodium Chloride 0.9% 100 ml @ 25 mls/hr IVPB Q8HR [facility] Rx# :[id number] Sodium Chloride 0.9% 1, 900 000 ml @ 75 mls/hr IV . [id number] GELY Rx#:[id number] Output: Urine 1100 700 Other: Voiding Method Indwelling Catheter Indwelling Catheter - Labs CBC & Chem 7: 03/19/24 05:37 03/19/24 05:37 Labs: Abnormal Lab Results - Last 24 Hours (Table) 03/19/24 Range/Units 10:03 Ur Specific [place] >1.050 H (1.001-1.035) Urine Protein Trace H (Negative)
[2024-03-20] MEDS ORDERED: IPRATROPIUM-ALBUTEROL 3 ML NEB INHALATION PRN (13:54)
--- NOTE | 2024-03-20 14:43 | CT ---
EXAMINATION TYPE: CT chest wo con CT DLP: 621.1 mGycm, Automated exposure control for dose reduction was used. DATE OF EXAM: 03/20/2024 11:19 AM COMPARISON: CT 03/19/2024 . 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 TECHNIQUE: Multiple axial images were obtained through the chest. Sagittal and coronal reformats were created for review. Contrast used: mL of (None if empty) Oral contrast used: (None if empty) FINDINGS: LUNGS/ PLEURA: Small right and [id number] left pleural effusions, increased from prior. There is slightly greater compressive atelectasis and consolidations, with increased air bronchograms in th e lower lobes. No pneumothorax. AIRWAY: Central airways are patent. LOWER NECK: No significant findings. Visualized thyroid is unremarkable. MEDIASTINUM: No enlarged nodes by CT size criteria. HEART: Heart size upper normal. No significant coronary calcifications.. No appreciable pericardial e ffusion. VASCULATURE: No significant atherosclerotic calcification.. Ascending aorta is 3.6 CM, descending is 3 CM. Pulmonary trunk measures 3.5 CM. The pulmonary trunk is enlarged (>3cm), this can be seen with pulmon sheila hypertension SOFT TISSUES/LYMPH NODES: Unremarkable soft tissues. No axillary adenopathy. UPPER ABDOMEN: No significant findings. Partially redemonstrated rounded prominent left extrarenal pe lvis. MUSCULOSKELETAL: No acute osseous abnormalities. Mild degenerative changes. IMPRESSION: 1. Small right and [id number] left pleural effusions, increased from prior. 2. Slightly greater bibasilar compressive atelectasis and consolidations, with increased air broncho grams in the lower lobes. Correlate for superimposed infection.
[2024-03-20] MEDS: IPRATROPIUM-ALBUTEROL 3 ML NEB INHALATION SCH (15:31)
--- NOTE | 2024-03-20 16:05 | XR ---
EXAM: XR chest 1V portable CLINICAL INDICATION:Male, 53 years old with history of pneumonia; [facility] COMPARISON: 03/19/2024 chest x-ray and CT angio CAP TECHNIQUE: Chest single view. FINDINGS: Lines/tubes/devices: EKG leads overlie the chest. No indwelling lines are seen. Cardiomediastinum: Cardiac silhouette appears upper normal in size. Unremarkable mediastinal silhouette. Vasculature: Mildly increased pulmonary vascular congestion. Lungs/pleura: Lung volumes are decreased from previous. Increased bibasilar opacities suggests small to moderate le ft and small right pleural effusions, with bibasilar atelectasis/airspace disease. No visualized pneu mothorax. Bones/soft tissues: Bony thorax appears grossly intact as seen. Surgical anchors over the right bony glenoid. Mild degene rative changes. Regional soft tissues appear unremarkable. IMPRESSION: Increased bibasilar opacities suggests small to moderate left and small right pleural effusions, with bibasilar atelectasis/airspace disease.
[2024-03-20] MEDS: methylPREDNISolone SOD SUCCI 125 MG/2 ML VIAL IV SCH (16:42)
[2024-03-21] MEDS: VANCOMYCIN 2,000 MG in SODIUM CHLORIDE 0.9% 500 ML 500 ML IVPB SCH (02:34)
[2024-03-21 08:34] LABS: HCT 41.2 % (39.6-50.0); HGB 13.5 g/dL (13.0-17.0); MCH 28.6 pg (27.0-32.0); MCHC 32.8 g/dL (32.0-37.0); MCV 87.3 FL (80.0-97.0); NRBC Per 100 WBC 0 X 10*3/uL (0.00-0.01); Platelet Count 220 X 10*3/uL (140-440); RBC 4.72 X 10*6/uL (4.40-5.60)
[2024-03-21 08:47] LABS: ALT 33 U/L (10-49); AST 19 U/L (14-35); Albumin 3.7 g/dL (3.8-4.9); Albumin/Globulin Ratio 1.42 Ratio (1.60-3.17); Alkaline Phosphatase 98 U/L (41-126); Blood Urea Nitrogen 13.3 mg/dL (9.0-27.0); Carbon Dioxide 19.6 mmol/L (21.6-31.8); Chloride 104 mmol/L (96-109); Globulin 2.6 g/dL (1.6-3.3); Glucose 191 mg/dL (70-110); Magnesium 1.9 mg/dL (1.5-2.4); Potassium 4.5 mmol/L (3.5-5.5); Sodium 137 mmol/L (135-145); Total Bilirubin 0.5 mg/dL (0.3-1.2); Total Protein 6.3 g/dL (6.2-8.2)
[2024-03-21 13:43] LABS: C. trachomatis,PCR Negative (Negative); N. gonorrhoeae,PCR Negative (Negative)
--- NOTE | 2024-03-21 13:47 | P.PN ---
Subjective Progress Note Date: 03/21/24 A 53-year-old male patient was admitted to the hospital yesterday because of severe pleuritic left-sided chest pain. The pain was quite extensive and developed over the past 24 to 48 hours. The patient is a healthy gentleman without any major issues. Recently, he had some issues with obstructive uropat hy and UTI and prostatitis. He was seen at [facility] for obstructive uropathy and a Ramos catheter was inserted and was treated for urinary tract infection with sepsis. He was discharged home with a Ramos catheter in place pending further workup. The patient comes into the hospital, quite diaphoretic, complaining of severe pleuritic left-sided chest pain, he was afebrile and hemodynamically stable. Nevertheless, he did encounter some fever earlier prior to his hospitalization. He is currently on 2 L of oxygen by nasal cannula. White circles of 12 with a hemoglobin of 15.1, D-dimer is at 2.9 with the rest of the coagulation profile within normal, normal electrolytes, normal renal function, normal LFTs, normal UA. The patient underwent a chest x-ray in the emergency department that showed no significant abnormalities. Following that, the patient was given a CT angiogram of the thoracic aorta. This was a suboptimal study due to motion artifact and there is a concern for development of a left lower lobe pneumonia and small effusion. No evidence of any pulm embolism. No evidence of any dissection. No calf pain or tenderness. Noted the patient was taken oral cephalosporins on outpatient basis regarding his underlying urine tract infection. During this current hospital stay, the patient was started on IV Zosyn. He is receiving also morphine for pain control 4 mg every 4 hours. No reported aspiration. The patient is seen today March 21, 2024 in follow-up on the regular medical floor. He is currently sitting up in bed. Awake and alert in no acute dis tress. His left-sided pleuritic chest pain is improved. Follow-up T6 CT scan revealed a small right and small to moderate left pleural effusions. Slightly greater bibasilar compressive atelectasis and consolidations with increased air bronchograms of the lower lobes. Blood cultures are pending. White count 17.9. Hemoglobin 13.5. Platelets 220. Sodium 137. Potassium 4.5. Bicarb 20. BUN 13. Creatinine 1.0. Glucose 191. Procalcitonin was 0.13. Viral screen was negative. Urinalysis clean. He remains on vancomycin and Zosyn. Continued on bronchodilators and steroids. Lovenox for DVT prophylaxis. Objective - Vital Signs Vital signs: Vital Signs Temp 98 F 03/21/24 07:24 Pulse 72 03/21/24 12:25 Resp 18 03/21/24 09:17 BP 124/80 03/21/24 07:24 Pulse Ox 93 L 03/21/24 09:05 FiO2 Intake & Output 03/20/24 03/21/24 03/21/24 18:59 06:59 18:59 Intake Total 900 Output Total 600 Balance 900 -600 Intake: IV 900 Sodium Chloride 0.9% 1, 900 000 ml @ 75 mls/hr IV . [id number] [facility] Rx#:[id number] Output: Urine 600 Other: Voiding Method Indwelling Catheter Indwelling Catheter - Exam GENERAL EXAM: Alert, very pleasant 53-year-old male patient, on 3 L nasal cannula, fairly comfortable in no apparent distress. HEAD: Normocephalic. EYES: Normal reaction of pupils, equal size. NOSE: Clear with pink turbinates. THROAT: No erythema or exudates. NECK: No masses, no JVD. CHEST: No chest wall deformity. LUNGS: Equal air entry with bilateral scattered rhonchi. CVS: S1 and S2 normal with no audible murmur, regular rhythm. ABDOMEN: No hepatosplenomegaly, normal bowel sounds, no guarding or rigidity. SPINE: No scoliosis or deformity SKIN: No rashes CENTRAL NERVOUS SYSTEM: No focal deficits, tone is normal in all 4 extremities. EXTREMITIES: There is no peripheral edema. No clubbing, no cyanosis. Peripheral pulses are intact. - Labs CBC & Chem 7: 03/21/24 03:22 03/21/24 03:22 Labs: Abnormal Lab Results - Last 24 Hours (Table) 03/20/24 03/21/24 03/21/24 Range/Units 11:37 03:22 03:22 WBC 17.90 H (4.50-10.00) X 10*3/uL Carbon Dioxide 19.6 L (21.6-31.8) mmol/L Anion Gap 13.40 H (4.00-12.00) mmol/L Glucose 191 H (70-110) mg/dL Albumin 3.7 L (3.8-4.9) g/dL Albumin/Globulin Ratio 1.42 L (1.60-3.17) Ratio Procalcitonin 0.13 H (0.02-0.09) ng/mL Microbiology - Last 24 Hours (Table) 03/19/24 07:45 Blood Culture - Preliminary Blood 03/19/24 07:30 Blood Culture - Preliminary Blood Assessment and Plan Assessment: Acute hypoxic respiratory failure currently on 2 L of oxygen by nasal cannula secondary to bilateral pneumonia Acute left-sided pleuritic chest pain, with some vague infiltration of the lung base bilaterally more so on the left. CT of the aorta was done and showed no evidence of any pulm embolism. No saddle embolism. No aortic dissection. There is some concern for left lower lobe consolidation. Repeat CT scan of the chest revealed small right and small to moderate left pleural effusions, increased from prior on 03/19/2024. There is slightly greater compressive atelectasis and consolidations with increased air bronchograms in the lower lobes. No pneumothorax. Mild leukocytosis secondary to above Obstructive uropathy/BPH with urine tract infection prostatitis and the patient has been given a Ramos catheter at [facility]. He was also taken a course of antibiotics on outpatient basis. Plan: The patient was seen and evaluated Repeat CT scan of the chest, labs and medications reviewed Currently on vancomycin and Zosyn Blood cultures pending Pleuritic chest pain is improving Titrate down the FiO2 as tolerated We will continue to follow I have personally seen and examined the patient, performed the documentation and the assessment and plan as written. Number of minutes spent on the visit: 10.
--- NOTE | 2024-03-21 14:58 | P.PN ---
Subjective Progress Note Date: 03/21/24 Hospital Course: Patient is a very pleasant 53-year-old male with a past medical history of BPH and currently Ramos catheter dependent after recent hospitalization for urosepsis secondary to acute prostatitis with urinary retention. He presented to the hospital with a chief complaint of left-sided chest pain. Patient reports intermittent left-sided chest pain waxing and waning over the past 2 months and initially associated it as an adverse reaction to an antibiotic because when he stopped taking the antibiotic his pain went away, however patient reports yesterday he again developed significant pain to left anterior chest radiating up into his left shoulder. Patient reports pain is worse with inspiration and lying down. He reports pain was so severe he was pacing the floor all night and upon telling his this morning she brought him to the hospital concerned that he was having a heart attack. Patient denies having any cough or congestion, shortness of breath, palpitations, fevers, chills, diaphoresis, headache, lightheadedness, nausea, vomiting, or experiencing any numbness/tingling/weakness/swelling in his extremities. Upon arrival to our facility, patient underwent evaluation in the emergency department. Vital signs reviewed. Blood pressure 137/92, heart rate 93, respiratory rate 18, temp 98.1 F, and SpO2 100% on room air. EKG completed showing normal sinus rhythm beats per minute no significant T wave or ST abnormalities upon personal review and interpretation showing prominent Q waves inferior leads II, III, and aVF as well as lateral leads V5 and V6. Chest x-ray completed negative for acute cardiopulmonary process. Labs completed and reviewed. CBC showing leukocytosis with WBC count of 12.1. BMP showing hyperchloremia with chloride of 108. Blood glucose was 111. Lactic acid normal findings at 1.7. Magnesium 1.9. Liver profile unremarkable. Lipase normal findings at 271. And troponin was negative at less than 0.012. Coagulation profile showing elevated D-dimer of 2.93. Patient underwent CTA chest showing no large or saddlebag/central emboli is noted but reporting enlarged pulmonary trunk with concerns of pneumonic infiltrate in the left lung base with small left pleural effusion. Patient admitted under our services with consultation to pulmonology at this time. Physical exam: Patient seen and fully evaluated at bedside this morning. He reports improvement of shortness of breath and states left-sided chest pain has signific antly improved. Patient has increased oxygen needs and is currently on 3 L O2 via nasal cannula with SpO2 of 90%. He had no further episodes of elevated temp and reports no episode of diaphoresis and chills throughout the night. Vital signs reviewed and stable. General: Nontoxic, no distress and appears stated age. Derm: Skin warm and dry, normal coloration for ethnicity. Head: Atraumatic, normocephalic and symmetric. Eyes: EOMs intact, no lid lag, and anicteric sclera Mouth: no lip lesions, mucus membranes moist Cardiovascular: regular rate and rhythm with normal S1S2, no murmur, positive posterior tibial pulses bilaterally, and cap refill < 2 seconds. Lungs: Respirations even, regular, and unlabored on 3 L. Lungs CTA bilaterally, no rhonchi, no rales, no wheezing, and no accessory muscle usage. Reproducible pain to anterior left lateral chest reported upon inspiration and palpation. Abdominal: soft, nontender to palpation, no guarding, no appreciable organomegaly. Indwelling Ramos catheter in place. Ext: ROM intact. No gross muscle atrophy, no edema, no contractures Neuro: Speech clear, face symmetrical and CN II-XII grossly intact with no noted focal neuro deficits Psych: Alert and oriented to person, place, time, and situation. Appropriate and pleasant affect. Assessment and Plan of Care: Pneumonic infiltrate likely pneumonia left lower lobe Chest pain, likely secondary to pleurisy and costochondritis -Oxygenation to be administered and titrated as needed to maintain SPO2 equal to or greater than 92% -Telemetry monitoring. -Monitor pulse-oximetry -Continue Solu-Medrol 60 mg IV every 8 hours. -Cepheid 4 Plex negative and Legionella antigen negative. Blood culture showing no growth to date. -Chlamydia rRNA negative. -Continue Duonebs schedule IV times daily and as needed for SOB and/or wheezing -Symptomatic care and pain management with Tylenol 650 mg p.o. mild pain/fever, Faith 5/325 mg tablets as needed for moderate pain, and morphine 4 mg IVP every 4 hours as needed for severe pain -Incentive Spirometry -Antibiotics: Continue Vancomycin 2 g every 12 hours and Zosyn 3.375 g every 8 hours. Will monitor renal function closely to monitor for any signs of vanco mycin induced renal toxicity. -Pulmonary following and reviewed documentation in chart. -Echocardiogram pending. Acute prostatitis with urinary retention BPH with bladder outlet obstruction and currently Ramos catheter dependent Urology following, reviewed documentation in chart. Continue Flomax 0.4 mg twice daily. Data and imaging reviewed: Morning labs completed and reviewed. CBC showing worsening leukocytosis with WBC count of 17.90. BMP showing elevated anion gap of 13.40 and low bicarb of 19.6. Blood glucose was 191. Liver profile unremarkable with exception of low albumin of 3.7. Procalcitonin was slightly elevated at 0.13. Cepheid 4 Plex negative. Urine Legionella negative. Blood culture showing no growth to date. Chlamydia and gonorrhea negative. Chest x-ray completed radiology report reviewed showing increased bibasilar opacities suggesting small to moderate left and small right pleural effusions with bibasilar atelectasis. CT chest without contrast repeated showing small right and small to moderate left pleural effusions increased from previous CT completed 03/19/2024 with slightly greater bibasilar compressive atelectasis and consolidations with incr eased air bronchograms in the lower lobes consistent with superimposed infection. Vital signs reviewed. Blood pressure 124/80, heart rate 94, respiratory rate 18, temp 98.0 F, and SpO2 of 90% on 3 L. CODE STATUS: Full code DVT prophylaxis: Lovenox Anticipated discharge date: Pending clinical course Anticipated discharge place: Pending clinical course Patient was seen independently by Nurse Practitioner. This document was prepared using [employer] dictation software. Please allow for errors in embroidery worker while rare they do occur. . I reviewed the documentation as provided by the ARTURO above, who is the original author of this note. I agree with the documented assessment and plan, with the following changes: none Objective - Vital Signs Vital signs: Vital Signs Temp 98 F 03/21/24 07:24 Pulse 94 03/21/24 07:24 Resp 18 03/21/24 07:24 BP 124/80 03/21/24 07:24 Pulse Ox 90 L 03/21/24 07:24 FiO2 Intake & Output 03/20/24 03/21/24 03/21/24 18:59 06:59 18:59 Intake Total 900 Output Total 600 Balance 900 -600 Intake: IV 900 Sodium Chloride 0.9% 1, 900 000 ml @ 75 mls/hr IV . [id number] [facility] Rx#:[id number] Output: Urine 600 Other: Voiding Method Indwelling Catheter - Labs CBC & Chem 7: 03/21/24 03:22 03/21/24 03:22 Labs: Abnormal Lab Results - Last 24 Hours (Table) 03/20/24 Range/Units 11:37 Procalcitonin 0.13 H (0.02-0.09) ng/mL Microbiology - Last 24 Hours (Table) 03/19/24 07:45 Blood Culture - Preliminary Blood 03/19/24 07:30 Blood Culture - Preliminary Blood
--- NOTE | 2024-03-21 15:29 | CA ---
Transthoracic Echo Report Name: Fer Head Age: 53 Gender: M : 1970 Exam Date: 03/21/2024 14:28 Exam Location: [facility] Ht (in): 71 Wt (lb): 234 Ordering Physician: Alessio Garcia Attending/Referring Phys: It Project Coordinator Cynthia Mathews RDCS Procedure CPT: Indications: eval structure and function Cardiac Hx: Technical Quality: Good Contrast 1: Total Dose (mL): Contrast 2: Total Dose (mL): MEASUREMENTS (Male / Female) Normal Values 2D ECHO LV Diastolic Diameter PLAX 4.1 cm 4.2 - 5.9 / 3.9 - 5.3 cm LV Systolic Diameter PLAX 2.7 cm IVS Diastolic Thickness 1.2 cm 0.6 - 1.0 / 0.6 - 0.9 cm LVPW Diastolic Thickness 1.4 cm 0.6 - 1.0 / 0.6 - 0.9 cm LV Relative Wall Thickness 0.6 RV Internal Dim ED PLAX 3.4 cm LA Systolic Diameter LX 3.8 cm 3.0 - 4.0 / 2.7 - 3.8 cm LV Diastolic Volume MOD 4C 134.3 cm??? LV Systolic Volume MOD 4C 56.8 cm??? LV Ejection Fraction MOD 4C 57.7 % LV Cardiac Index MOD 4C 3546.7 cm???/min???m??? LV Diastolic Length 4C 9.3 cm LV Systolic Length 4C 7.8 cm LV Diastolic Volume MOD 2C 95.1 cm??? LV Systolic Volume MOD 2C 27.6 cm??? LV Ejection Fraction MOD 2C 71.0 % LV Cardiac Index MOD 2C 3091.7 cm???/min???m??? LV Diastolic Length 2C 9.7 cm LV Systolic Length 2C 7.6 cm LA Volume 52.6 cm??? 18 - 58 / 22 - 52 cm??? LA Volume Index 22.5 cm???/m??? 16 - 28 cm???/m??? M-MODE Aortic Root Diameter MM 3.5 cm AV Cusp Separation MM 2.5 cm DOPPLER AV Peak Velocity 184.8 cm/s AV Peak Gradient 13.7 mmHg MV Area PHT 4.2 cm??? Mitral E Point Velocity 92.2 cm/s Mitral A Point Velocity 95.5 cm/s Mitral E to A Ratio 1.0 MV Deceleration Time 181.9 ms FINDINGS Left Ventricle Left ventricular ejection fraction is estimated at 65-70 %. Left ventricular cavity size normal. Mildly increased septal wall thickness. Normal left ventricular wall motion. Right Ventricle Mild right ventricular dilatation. Unable to estimate the right ventricular systolic pressure. Right Atrium Normal right atrial size. No right atrial thrombus or mass seen. Left Atrium Normal left atrial size. No left atrial thrombus or mass present. Mitral Valve Structurally normal mitral valve. No mitral stenosis, regurgitation or prolapse. Aortic Valve Trileaflet aortic valve. No aortic valve stenosis or regurgitation. Tricuspid Valve Structurally normal tricuspid valve. No tricuspid stenosis, regurgitation or prolapse. Pulmonic Valve Structurally normal pulmonic valve. No pulmonic regurgitation. Pericardium No pericardial effusion. Aorta Normal size aortic root and proximal ascending aorta. CONCLUSIONS Left ventricular ejection fraction 65-70% Normal left ventricular wall thickness No mitral regurgitation No tricuspid regurgitation No pericardial effusion Previewed by: Dr. Umesh Lemons DO (Electronically Signed) Final Date: 21 March 2024 15:28
--- NOTE | 2024-03-22 08:49 | P.PN ---
Subjective Progress Note Date: 03/22/24 Urine remains clear, denies any dysuria or any issues with the catheter Objective - Vital Signs Vital signs: Vital Signs Temp 97.6 F 03/22/24 07:24 Pulse 74 03/22/24 07:24 Resp 18 03/22/24 07:24 BP 134/86 03/22/24 07:24 Pulse Ox 94 L 03/22/24 07:24 FiO2 Intake & Output 03/21/24 03/22/24 03/22/24 18:59 06:59 18:59 Output Total 1400 800 Balance -1400 -800 Output: Urine 1400 800 Other: Voiding Method Indwelling Catheter Indwelling Catheter - Constitutional General appearance: Present: no acute distress - Gastrointestinal General gastrointestinal: Present: soft. Absent: distended, tenderness - Psychiatric Psychiatric: Present: A&O x's 3 - Labs CBC & Chem 7: 03/21/24 03:22 03/21/24 03:22 Labs: Microbiology - Last 24 Hours (Table) 03/19/24 07:45 Blood Culture - Preliminary Blood 03/19/24 07:30 Blood Culture - Preliminary Blood Assessment and Plan Assessment: 53-year-old male admitted to the hospital with pneumonia. Had a recent hospital admission at [place] for prostatitis and urinary retention. He was seen in our office last week, plan was to remove the catheter on Thursday -Continue Flomax twice daily -Ramos catheter can be removed tomorrow morning
[2024-03-22 12:05] LABS: HGB 14.1 gm/dL (13.0-17.5); MCH 28.5 pg (25.0-35.0); MCHC 32.1 g/dL (31.0-37.0); Mean Platelet Volume 7.9; Platelet Count 273 k/uL (150-450); RBC 4.95 m/uL (4.30-5.90); RDW 12.6 % (11.5-15.5); WBC 23.9 k/uL (3.8-10.6)
[2024-03-22 12:23] LABS: African American GFR (CKD) >90 (>60 ml/min/1.73 sqM); Anion Gap 10 mmol/L; Blood Urea Nitrogen 17 mg/dL (9-20); Calcium 9.6 mg/dL (8.4-10.2); Carbon Dioxide 21 mmol/L (22-30); Chloride 111 mmol/L (98-107); Glucose 141 mg/dL (74-99); Non-African American GFR(CKD) >90 (>60 ml/min/1.73 sqM); Potassium 4.4 mmol/L (3.5-5.1); Sodium 142 mmol/L (137-145)
--- NOTE | 2024-03-22 13:37 | P.PN ---
Subjective Progress Note Date: 03/22/24 A 53-year-old male patient was admitted to the hospital yesterday because of severe pleuritic left-sided chest pain. The pain was quite extensive and developed over the past 24 to 48 hours. The patient is a healthy gentleman without any major issues. Recently, he had some issues with obstructive uropat hy and UTI and prostatitis. He was seen at [facility] for obstructive uropathy and a Ramos catheter was inserted and was treated for urinary tract infection with sepsis. He was discharged home with a Ramos catheter in place pending further workup. The patient comes into the hospital, quite diaphoretic, complaining of severe pleuritic left-sided chest pain, he was afebrile and hemodynamically stable. Nevertheless, he did encounter some fever earlier prior to his hospitalization. He is currently on 2 L of oxygen by nasal cannula. White circles of 12 with a hemoglobin of 15.1, D-dimer is at 2.9 with the rest of the coagulation profile within normal, normal electrolytes, normal renal function, normal LFTs, normal UA. The patient underwent a chest x-ray in the emergency department that showed no significant abnormalities. Following that, the patient was given a CT angiogram of the thoracic aorta. This was a suboptimal study due to motion artifact and there is a concern for development of a left lower lobe pneumonia and small effusion. No evidence of any pulm embolism. No evidence of any dissection. No calf pain or tenderness. Noted the patient was taken oral cephalosporins on outpatient basis regarding his underlying urine tract infection. During this current hospital stay, the patient was started on IV Zosyn. He is receiving also morphine for pain control 4 mg every 4 hours. No reported aspiration. The patient is seen today March 21, 2024 in follow-up on the regular medical floor. He is currently sitting up in bed. Awake and alert in no acute dis tress. His left-sided pleuritic chest pain is improved. Follow-up T6 CT scan revealed a small right and small to moderate left pleural effusions. Slightly greater bibasilar compressive atelectasis and consolidations with increased air bronchograms of the lower lobes. Blood cultures are pending. White count 17.9. Hemoglobin 13.5. Platelets 220. Sodium 137. Potassium 4.5. Bicarb 20. BUN 13. Creatinine 1.0. Glucose 191. Procalcitonin was 0.13. Viral screen was negative. Urinalysis clean. He remains on vancomycin and Zosyn. Continued on bronchodilators and steroids. Lovenox for DVT prophylaxis. The patient is seen today March 22, 2024 in follow-up on the regular medical floor. He is currently sitting up in a chair. Awake and alert in no acute distress. Feeling a bit better today compared to yesterday. He is maintaining good O2 saturations in the 90s on 3 L/min per nasal cannula. His procalcitonin was 0.13. He is continued on vancomycin and Zosyn. He remains on DuoNeb inhalations, Solu-Medrol. Lovenox for DVT prophylaxis. He had been seen by Dr. Leiva from urology who placed a Ramos catheter and plans to trial him again without 1 prior to discharge. Echocardiogram revealed preserved left ventricular systolic function with ejection fraction 65 to 70%. No significant valvular abnormalities. White count 23.9. Hemoglobin 14.1. Platelets 273. Sodium 142. Potassium 4.4. Bicarb 21. BUN 17. Creatinine 0.90. Glucose 141. Objective - Vital Signs Vital signs: Vital Signs Temp 97.6 F 03/22/24 07:24 Pulse 88 03/22/24 12:47 Resp 18 03/22/24 07:24 BP 134/86 03/22/24 07:24 Pulse Ox 94 L 03/22/24 09:10 FiO2 Intake & Output 03/21/24 03/22/24 03/22/24 18:59 06:59 18:59 Output Total 1400 800 Balance -1400 -800 Output: Urine 1400 800 Other: Voiding Method Indwelling Catheter Indwelling Catheter - Exam GENERAL EXAM: Alert, pleasant 53-year-old male, up in a chair, on 3 L nasal cannula, comfortable in no apparent distress. HEAD: Normocephalic. EYES: Normal reaction of pupils, equal size. NOSE: Clear with pink turbinates. THROAT: No erythema or exudates. NECK: No masses, no JVD. CHEST: No chest wall deformity. LUNGS: Equal air entry with bilateral scattered rhonchi. CVS: S1 and S2 normal with no audible murmur, regular rhythm. ABDOMEN: No hepatosplenomegaly, normal bowel sounds, no guarding or rigidity. SPINE: No scoliosis or deformity SKIN: No rashes CENTRAL NERVOUS SYSTEM: No focal deficits, tone is normal in all 4 extremities. EXTREMITIES: There is no peripheral edema. No clubbing, no cyanosis. Peripheral pulses are intact. - Labs CBC & Chem 7: 03/22/24 11:17 03/22/24 11:17 Labs: Abnormal Lab Results - Last 24 Hours (Table) 03/22/24 03/22/24 Range/Units 11:17 11:17 WBC 23.9 H (3.8-10.6) k/uL Chloride 111 H (98-107) mmol/L Carbon Dioxide 21 L (22-30) mmol/L Glucose 141 H (74-99) mg/dL Microbiology - Last 24 Hours (Table) 03/20/24 13:17 Nasal Screen MRSA/MSSA - Final Nasal Swab 03/19/24 07:45 Blood Culture - Preliminary Blood 03/19/24 07:30 Blood Culture - Preliminary Blood Assessment and Plan Assessment: Acute hypoxic respiratory failure currently on 2 L of oxygen by nasal cannula secondary to bilateral pneumonia Acute left-sided pleuritic chest pain, with some vague infiltration of the lung base bilaterally more so on the left. CT of the aorta was done and showed no evidence of any pulm embolism. No saddle embolism. No aortic dissection. There is some concern for left lower lobe consolidation. Repeat CT scan of the chest revealed small right and small to moderate left pleural effusions, increased from prior on 03/19/2024. There is slightly greater compressive atelectasis and consolidations with increased air bronchograms in the lower lobes. No pneumothorax Mild leukocytosis secondary to above Obstructive uropathy/BPH with urine tract infection prostatitis and the patient has been given a Ramos catheter at [facility]. He was also taken a course of antibiotics on outpatient basis. Currently has a Ramos catheter in place. Remains on Flomax Plan: The patient was seen and evaluated Labs and medications reviewed Currently on vancomycin and Zosyn Titrate down the FiO2 as tolerated Continue bronchodilators, steroids Follow-up chest x-ray in a.m. We will continue to follow I have personally seen and examined the patient, performed the documentation and the assessment and plan as written. Number of minutes spent on the visit: 10.
[2024-03-22] MEDS: VANCOMYCIN TROUGH DUE 1 EACH MISC MISCELLANE ONE (14:01)
--- NOTE | 2024-03-22 17:59 | P.PN ---
Subjective Progress Note Date: 03/22/24 Hospital Course: Patient is a very pleasant 53-year-old male with a past medical history of BPH and currently Ramos catheter dependent after recent hospitalization for urosepsis secondary to acute prostatitis with urinary retention. He presented to the hospital with a chief complaint of left-sided chest pain. Patient reports intermittent left-sided chest pain waxing and waning over the past 2 months and initially associated it as an adverse reaction to an antibiotic because when he stopped taking the antibiotic his pain went away, however patient reports yesterday he again developed significant pain to left anterior chest radiating up into his left shoulder. Patient reports pain is worse with inspiration and lying down. He reports pain was so severe he was pacing the floor all night and upon telling his this morning she brought him to the hospital concerned that he was having a heart attack. Patient denies having any cough or congestion, shortness of breath, palpitations, fevers, chills, diaphoresis, headache, lightheadedness, nausea, vomiting, or experiencing any numbness/tingling/weakness/swelling in his extremities. Upon arrival to our facility, patient underwent evaluation in the emergency department. Vital signs reviewed. Blood pressure 137/92, heart rate 93, respiratory rate 18, temp 98.1 F, and SpO2 100% on room air. EKG completed showing normal sinus rhythm beats per minute no significant T wave or ST abnormalities upon personal review and interpretation showing prominent Q waves inferior leads II, III, and aVF as well as lateral leads V5 and V6. Chest x-ray completed negative for acute cardiopulmonary process. Labs completed and reviewed. CBC showing leukocytosis with WBC count of 12.1. BMP showing hyperchloremia with chloride of 108. Blood glucose was 111. Lactic acid normal findings at 1.7. Magnesium 1.9. Liver profile unremarkable. Lipase normal findings at 271. And troponin was negative at less than 0.012. Coagulation profile showing elevated D-dimer of 2.93. Patient underwent CTA chest showing no large or saddlebag/central emboli is noted but reporting enlarged pulmonary trunk with concerns of pneumonic infiltrate in the left lung base with small left pleural effusion. Patient admitted under our services with consultation to pulmonology at this time. Physical exam: Patient seen and fully evaluated at bedside this morning. He reports continued mild improvement but does report he had a rough afternoon and evening yesterday. He remains on 3 L O2. Continues to deny cough or congestion but reports continued shortness of breath and remains tender upon palpation to left anterior chest. Vital signs reviewed and stable. General: Nontoxic, no distress and appears stated age. Derm: Skin warm and dry, normal coloration for ethnicity. Head: Atraumatic, normocephalic and symmetric. Eyes: EOMs intact, no lid lag, and anicteric sclera Mouth: no lip lesions, mucus membranes moist Cardiovascular: regular rate and rhythm with normal S1S2, no murmur, positive posterior tibial pulses bilaterally, and cap refill < 2 seconds. Lungs: Respirations even, regular, and unlabored on 3 L. Lungs Reproducible pain to anterior left lateral chest reported upon inspiration and palpation diffuse rhonchi greater in lower lobes. No wheezing. Abdominal: soft, nontender to palpation, no guarding, no appreciable organome mariya. Indwelling Ramos catheter in place. Ext: ROM intact. No gross muscle atrophy, no edema, no contractures Neuro: Speech clear, face symmetrical and CN II-XII grossly intact with no noted focal neuro deficits Psych: Alert and oriented to person, place, time, and situation. Appropriate and pleasant affect. Assessment and Plan of Care: Acute respiratory failure with hypoxia Pneumonic infiltrate likely pneumonia left lower lobe Chest pain, likely secondary to pleurisy and costochondritis Leukocytosis -Oxygenation to be administered and titrated as needed to maintain SPO2 equal to or greater than 92% -Telemetry monitoring. -Monitor pulse-oximetry -Continue Solu-Medrol 60 mg IV every 8 hours. -Cepheid 4 Plex negative and Legionella antigen negative. Blood culture showing no growth to date. -Chlamydia rRNA negative. -Continue Duonebs schedule IV times daily and as needed for SOB and/or wheezing -Symptomatic care and pain management with Tylenol 650 mg p.o. mild pain/fever, Telephone 5/325 mg tablets as needed for moderate pain, and morphine 4 mg IVP every 4 hours as needed for severe pain -Incentive Spirometry -Antibiotics: Continue Vancomycin 2 g every 12 hours and Zosyn 3.375 g every 8 hours. Will monitor renal function closely to monitor for any signs of vancomycin induced renal toxicity. -Pulmonary following and reviewed documentation in chart. -Echocardiogram EF 65-70% with no reported valvular or structural abnormalities. Acute prostatitis with urinary retention BPH with bladder outlet obstruction and currently Ramos catheter dependent Urology following, planning to remove Ramos catheter tomorrow and reattempt voiding trial. Continue Flomax 0.4 mg twice daily. Data and imaging reviewed: Morning labs completed and reviewed. CBC showing worsening leukocytosis with WBC count of 23.9. BMP showing chloride of 111, bicarb 21, and anion gap of 10. Blood glucose 141. Magnesium 2.0. Vancomycin trough therapeutic at 13.5. Echocardiogram completed and reviewed. EF 65-70% with no reported valvular or structural abnormalities. Vital signs reviewed. Blood pressure 134/86, heart rate 74, respiratory rate 18, temp 97.6 F, and SpO2 of 94% on 3 L. CODE STATUS: Full code DVT prophylaxis: Lovenox Anticipated discharge date: Pending clinical course Anticipated discharge place: Pending clinical course Patient was seen independently by Nurse Practitioner. This document was prepared using [employer] dictation software. Please allow for errors in erp business analyst while rare they do occur. Objective - Vital Signs Vital signs: Vital Signs Temp 97.6 F 03/22/24 07:24 Pulse 74 03/22/24 07:24 Resp 18 03/22/24 07:24 BP 134/86 03/22/24 07:24 Pulse Ox 94 L 03/22/24 07:24 FiO2 Intake & Output 03/21/24 03/22/24 03/22/24 18:59 06:59 18:59 Output Total 1400 800 Balance -1400 -800 Output: Urine 1400 800 Other: Voiding Method Indwelling Catheter Indwelling Catheter - Labs CBC & Chem 7: 03/22/24 11:17 03/22/24 11:17 Labs: Abnormal Lab Results - Last 24 Hours (Table) 03/21/24 03/21/24 Range/Units 03:22 03:22 WBC 17.90 H (4.50-10.00) X 10*3/uL Carbon Dioxide 19.6 L (21.6-31.8) mmol/L Anion Gap 13.40 H (4.00-12.00) mmol/L Glucose 191 H (70-110) mg/dL Albumin 3.7 L (3.8-4.9) g/dL Albumin/Globulin Ratio 1.42 L (1.60-3.17) Ratio Microbiology - Last 24 Hours (Table) 03/19/24 07:45 Blood Culture - Preliminary Blood 03/19/24 07:30 Blood Culture - Preliminary Blood
[2024-03-22] MEDS: CALCIUM CARBONATE 500 MG CHEWABLE PO PRN (20:59)
[2024-03-22] MEDS: PANTOPRAZOLE 40 MG TABLET PO SCH (20:59)
--- NOTE | 2024-03-23 08:18 | XR ---
EXAMINATION TYPE: XR chest 1V portable DATE OF EXAM: 03/23/2024 6:32 AM CLINICAL INDICATION:Male, 53 years old with history of Pneumonia; [facility] COMPARISON: Chest radiographs from 03/20/24 TECHNIQUE: XR chest 1V portable Frontal view of the chest. FINDINGS: Lungs/Pleura: Stable left basilar airspace opacities There is no evidence of pleural effusion, right focal consolidation, or pneumothorax. Pulmonary vascularity: Unremarkable. Heart/mediastinum: Cardiomediastinal silhouette is unremarkable. Musculoskeletal: No acute osseous pathology. Other findings: None IMPRESSION: Stable left basilar airspace opacities.
--- NOTE | 2024-03-23 08:42 | P.PN ---
Subjective Urine remains clear, denies any dysuria or any issues with the catheter Objective - Vital Signs Vital signs: Vital Signs Temp 97.5 F L 03/23/24 08:00 Pulse 86 03/23/24 08:00 Resp 15 03/23/24 08:00 BP 134/63 03/23/24 08:00 Pulse Ox 94 L 03/23/24 08:00 FiO2 Intake & Output 03/22/24 03/23/24 03/23/24 18:59 06:59 18:59 Intake Total 118 Output Total 1000 Balance -1000 118 Intake: Oral 118 Output: Urine 1000 Other: Voiding Method Indwelling Catheter # Voids 2 - Labs CBC & Chem 7: 03/22/24 11:17 03/22/24 11:17 Labs: Abnormal Lab Results - Last 24 Hours (Table) 03/22/24 03/22/24 Range/Units 11:17 11:17 WBC 23.9 H (3.8-10.6) k/uL Chloride 111 H (98-107) mmol/L Carbon Dioxide 21 L (22-30) mmol/L Glucose 141 H (74-99) mg/dL Microbiology - Last 24 Hours (Table) 03/19/24 07:45 Blood Culture - Preliminary Blood 03/19/24 07:30 Blood Culture - Preliminary Blood 03/20/24 13:17 Nasal Screen MRSA/MSSA - Final Nasal Swab Assessment and Plan Assessment: 53-year-old male admitted to the hospital with pneumonia. Had a recent hospital admission at [facility] for prostatitis and urinary retention. He was seen in our office last week, plan was to remove the catheter on Thursday -Continue Flomax twice daily -Ramos catheter can be removed from urology standpoint today
[2024-03-23 08:51] LABS: HCT 37.8 % (39.6-50.0); HGB 12.5 g/dL (13.0-17.0); MCH 28.4 pg (27.0-32.0); MCHC 33.1 g/dL (32.0-37.0); MCV 85.9 FL (80.0-97.0); NRBC Per 100 WBC 0 X 10*3/uL (0.00-0.01); Platelet Count 241 X 10*3/uL (140-440); RDW 12.5 % (11.5-14.5); WBC 18.58 X 10*3/uL (4.50-10.00)
[2024-03-23 09:01] LABS: Blood Urea Nitrogen 16.5 mg/dL (9.0-27.0); Glucose 127 mg/dL (70-110)
[2024-03-23 09:02] LABS: Calcium 8.9 mg/dL (8.7-10.3); Carbon Dioxide 20.9 mmol/L (21.6-31.8); Chloride 107 mmol/L (96-109); Magnesium 2.1 mg/dL (1.5-2.4); Potassium 5.1 mmol/L (3.5-5.5); Sodium 141 mmol/L (135-145)
[2024-03-23 13:26] VITALS: RESP 16
--- NOTE | 2024-03-23 13:46 | P.PN ---
Subjective Progress Note Date: 03/23/24 A 53-year-old male patient was admitted to the hospital yesterday because of severe pleuritic left-sided chest pain. The pain was quite extensive and developed over the past 24 to 48 hours. The patient is a healthy gentleman without any major issues. Recently, he had some issues with obstructive uropat hy and UTI and prostatitis. He was seen at [facility] for obstructive uropathy and a Ramos catheter was inserted and was treated for urinary tract infection with sepsis. He was discharged home with a Ramos catheter in place pending further workup. The patient comes into the hospital, quite diaphoretic, complaining of severe pleuritic left-sided chest pain, he was afebrile and hemodynamically stable. Nevertheless, he did encounter some fever earlier prior to his hospitalization. He is currently on 2 L of oxygen by nasal cannula. White circles of 12 with a hemoglobin of 15.1, D-dimer is at 2.9 with the rest of the coagulation profile within normal, normal electrolytes, normal renal function, normal LFTs, normal UA. The patient underwent a chest x-ray in the emergency department that showed no significant abnormalities. Following that, the patient was given a CT angiogram of the thoracic aorta. This was a suboptimal study due to motion artifact and there is a concern for development of a left lower lobe pneumonia and small effusion. No evidence of any pulm embolism. No evidence of any dissection. No calf pain or tenderness. Noted the patient was taken oral cephalosporins on outpatient basis regarding his underlying urine tract infection. During this current hospital stay, the patient was started on IV Zosyn. He is receiving also morphine for pain control 4 mg every 4 hours. No reported aspiration. The patient is seen today March 21, 2024 in follow-up on the regular medical floor. He is currently sitting up in bed. Awake and alert in no acute dis tress. His left-sided pleuritic chest pain is improved. Follow-up T6 CT scan revealed a small right and small to moderate left pleural effusions. Slightly greater bibasilar compressive atelectasis and consolidations with increased air bronchograms of the lower lobes. Blood cultures are pending. White count 17.9. Hemoglobin 13.5. Platelets 220. Sodium 137. Potassium 4.5. Bicarb 20. BUN 13. Creatinine 1.0. Glucose 191. Procalcitonin was 0.13. Viral screen was negative. Urinalysis clean. He remains on vancomycin and Zosyn. Continued on bronchodilators and steroids. Lovenox for DVT prophylaxis. The patient is seen today March 22, 2024 in follow-up on the regular medical floor. He is currently sitting up in a chair. Awake and alert in no acute distress. Feeling a bit better today compared to yesterday. He is maintaining good O2 saturations in the 90s on 3 L/min per nasal cannula. His procalcitonin was 0.13. He is continued on vancomycin and Zosyn. He remains on DuoNeb inhalations, Solu-Medrol. Lovenox for DVT prophylaxis. He had been seen by Dr. Leiva from urology who placed a Ramos catheter and plans to trial him again without 1 prior to discharge. Echocardiogram revealed preserved left ventricular systolic function with ejection fraction 65 to 70%. No significant valvular abnormalities. White count 23.9. Hemoglobin 14.1. Platelets 273. Sodium 142. Potassium 4.4. Bicarb 21. BUN 17. Creatinine 0.90. Glucose 141. The patient is seen today March 23, 2024 in follow-up on the regular medical floor. He is awake and alert in no acute distress. Resting comfortably in bed. Feeling better each day. Denies any worsening shortness of breath, cough or congestion. He is maintaining good O2 saturations in the 90s on room air. He is continued on DuoNeb inhalations, Solu-Medrol. Remains on Lovenox for DVT prophylaxis. Antibiotics in the form of Zosyn. His follow-up chest x-ray reveals stable left basilar airspace opacities. Right lung is clear. Blood cultures revealed no growth. White count 18.5. Hemoglobin 12.5. Platelets 241. Sodium 141. Potassium 5.1. Bicarb 21. BUN 16. Creatinine 1.0. Glucose 127. His Ramos catheter was removed today per urology. Objective - Vital Signs Vital signs: Vital Signs Temp 97.5 F L 03/23/24 08:00 Pulse 75 03/23/24 12:43 Resp 16 03/23/24 13:17 BP 134/63 03/23/24 08:00 Pulse Ox 96 03/23/24 09:10 FiO2 Intake & Output 03/22/24 03/23/24 03/23/24 18:59 06:59 18:59 Intake Total 118 Output Total 1000 1000 Balance -1000 -882 Intake: Oral 118 Output: Urine 1000 1000 Other: Voiding Method Indwelling Catheter Toilet # Voids 2 - Exam GENERAL EXAM: Alert, 53-year-old male, resting in bed, on room air, comfortable in no apparent distress. HEAD: Normocephalic. EYES: Normal reaction of pupils, equal size. NOSE: Clear with pink turbinates. THROAT: No erythema or exudates. NECK: No masses, no JVD. CHEST: No chest wall deformity. LUNGS: Equal air entry with bilateral scattered rhonchi. CVS: S1 and S2 normal with no audible murmur, regular rhythm. ABDOMEN: No hepatosplenomegaly, normal bowel sounds, no guarding or rigidity. SPINE: No scoliosis or deformity SKIN: No rashes CENTRAL NERVOUS SYSTEM: No focal deficits, tone is normal in all 4 extremities. EXTREMITIES: There is no peripheral edema. No clubbing, no cyanosis. Peripheral pulses are intact. - Labs CBC & Chem 7: 03/23/24 05:01 03/23/24 05:01 Labs: Abnormal Lab Results - Last 24 Hours (Table) 03/23/24 03/23/24 Range/Units 05:01 05:01 WBC 18.58 H (4.50-10.00) X 10*3/uL Hgb 12.5 L (13.0-17.0) g/dL Hct 37.8 L (39.6-50.0) % Carbon Dioxide 20.9 L (21.6-31.8) mmol/L Anion Gap 13.10 H (4.00-12.00) mmol/L Glucose 127 H (70-110) mg/dL Microbiology - Last 24 Hours (Table) 03/19/24 07:45 Blood Culture - Preliminary Blood 03/19/24 07:30 Blood Culture - Preliminary Blood 03/20/24 13:17 Nasal Screen MRSA/MSSA - Final Nasal Swab Assessment and Plan Assessment: Acute hypoxic respiratory failure secondary to bilateral pneumonia, recovered and on room air. Follow-up chest x-ray reveals stable left lower lobe opacity. Acute left-sided pleuritic chest pain, with some vague infiltration of the lung base bilaterally more so on the left. CT of the aorta was done and showed no evidence of any pulm embolism. No saddle embolism. No aortic dissection. There is some concern for left lower lobe consolidation. Repeat CT scan of the chest revealed small right and small to moderate left pleural effusions, increased from prior on 03/19/2024. There is slightly greater compressive atelectasis and consolidations with increased air bronchograms in the lower lobes. No pneumothorax Mild leukocytosis secondary to above Obstructive uropathy/BPH with urine tract infection prostatitis and the patient has been given a Ramos catheter at [facility]. He was also taken a course of antibiotics on outpatient basis. Ramos catheter removed today, March 23, 2024, remains on Flomax Plan: The patient was seen and evaluated Chest x-ray, labs and medications reviewed Echocardiogram reviewed Currently on Zosyn Remains on bronchodilators, steroids Cleared for discharge from the pulmonary standpoint Follow-up in our office in 1 week I have personally seen and examined the patient, performed the documentation and the assessment and plan as written. Number of minutes spent on the visit: 10.
--- NOTE | 2024-03-23 14:24 | P.DS ---
Providers Date of admission: 03/19/24 11:11 Attending physician: Bert Minor MD Consults: 03/19/24 11:11 Consult Physician Routine Consulting Provider: Ellyn Henson Consult Reason/Comments: Pneumonia Do you want consulting provider notified?: Yes 03/19/24 11:12 Consult Physician Routine Consulting Provider: Dutch King Consult Reason/Comments: Indwelling catheter, history of urinary tract infection Do you want consulting provider notified?: Already Contacted Primary care physician: Stated None Hospital Course: Hospital course Patient is a very pleasant 53-year-old male with a past medical history of BPH and currently Ramos catheter dependent after recent hospitalization for urosepsis secondary to acute prostatitis with urinary retention. He presented t o the hospital with a chief complaint of left-sided chest pain. Patient reports intermittent left-sided chest pain waxing and waning over the past 2 months and initially associated it as an adverse reaction to an antibiotic because when he stopped taking the antibiotic his pain went away, however patient reports yesterday he again developed significant pain to left anterior chest radiating up into his left shoulder. Patient reports pain is worse with inspiration and lying down. He reports pain was so severe he was pacing the floor all night and upon telling his this morning she brought him to the hospital concerned that he was having a heart attack. Patient denies having any cough or congestion, shortness of breath, palpitations, fevers, chills, diaphoresis, headache, lightheadedness, nausea, vomiting, or experiencing any numbness/tingling/weakness/swelling in his extremities. Upon arrival to our facility, patient underwent evaluation in the emergency department. Vital signs reviewed. Blood pressure 137/92, heart rate 93, respiratory rate 18, temp 98.1 F, and SpO2 100% on room air. EKG completed showing normal sinus rhythm beats per minute no significant T wave or ST abnormalities upon personal review and interpretation showing prominent Q waves inferior leads II, III, and aVF as well as lateral leads V5 and V6. Chest x-ray completed negative for acute cardiopulm onary process. Labs completed and reviewed. CBC showing leukocytosis with WBC count of 12.1. BMP showing hyperchloremia with chloride of 108. Blood glucose was 111. Lactic acid normal findings at 1.7. Magnesium 1.9. Liver profile unremarkable. Lipase normal findings at 271. And troponin was negative at less than 0.012. Coagulation profile showing elevated D-dimer of 2.93. Patient underwent CTA chest showing no large or saddlebag/central emboli is noted but reporting enlarged pulmonary trunk with concerns of pneumonic infiltrate in the left lung base with small left pleural effusion. Patient admitted under our services with consultation to pulmonology at this time. Patient was treated with IV Zosyn and vancomycin for bilateral pneumonia. Patient was also started on steroids for possible costochondritis. At the time of discharge his pain had improved and his oxygen was weaned down to room air. WBC was trending down at the time of discharge and patient was also afebrile. His blood cultures were negative. Repeat chest x-ray on the day of discharge showed stable left basilar opacity. Patient had a home O2 eval prior to discharge and he did not qualify for oxygen. Patient was cleared for discharge by pulmonology. Patient instructed to follow-up with pulmonology in 1 week. Patient will be discharged on Augmentin to complete a 5-day antibiotic course. Will also discharge the patient on prednisone 50 mg for 2 more days. Patient was also seen by urology due to recent history of prostatitis. Patient Ramos catheter was removed as recommended by urology. Patient passed voiding trial prior to discharge. Patient deemed stable for discharge home. He is looking forward to going home. Discharge diagnosis Acute respiratory failure with hypoxia Bilateral pneumonia Chest pain, likely secondary to pleurisy and costochondritis Leukocytosis secondary to infection and steroids Recent admission for acute prostatitis and was discharged with a Ramos catheter BPH with bladder outlet obstruction: Patient passed voiding trial prior to discharge Physical exam General examination - Alert and Oriented 3 in NAD Heart - + S1S2 no murmurs Lungs - Clear to auscultation Abdomen soft NT ND +ve BS Extremities - No edema QUALITY NURSE - Moving all 4 extremities spontaneously Psych - Calm and cooperative I spent a total of 33 minutes with this discharge Patient Condition at Discharge: Fair Plan - Discharge Summary Discharge Rx Participant: No New Discharge Prescriptions: New Amoxic-Pot Clav 875-125Mg [Augmentin 875-125] 1 tab PO Q12HR 2 Days #4 tab predniSONE 50 mg PO DAILY 2 Days #2 tab Continue Tamsulosin [Flomax] 0.4 mg PO BID Discontinued Ciprofloxacin HCl [Cipro] 250 mg PO BID Discharge Medication List Tamsulosin [Flomax] 0.4 mg PO BID 07/06/24 [History] Amoxic-Pot Clav 875-125Mg [Augmentin 875-125] 1 tab PO Q12HR 2 Days #4 tab 03/23/24 [Rx] predniSONE 50 mg PO DAILY 2 Days #2 tab 03/23/24 [Rx] Follow up Appointment(s)/Referral(s): Wong Borden MD [REFERRING] - 1-2 Days (Please call and schedule appointment upon discharge. ) Ellyn Henson MD [STAFF PHYSICIAN] - 1 Week Discharge Disposition: HOME SELF-CARE
[2024-03-23 14:35] VITALS: BP 124/69; PULSE 59; TEMP 97.8
[2024-03-24] MEDS ORDERED: predniSONE 20 MG TAB PO SCH (09:00)
== END 2024-03-23 14:47 | disposition home or self-care (01) | DRG 193 ==
LOC: EC 05:16 → 4SSUR 11:11
PROVIDERS: ADMIT Student in an Organized Health Care Education/Training Program; ATTEND Student in an Organized Health Care Education/Training Program
DX: J18.9 Pneumonia, unspecified organism (principal); J96.01 Acute respiratory failure with hypoxia; J90 Pleural effusion, not elsewhere classified; N13.8 Other obstructive and reflux uropathy; J98.11 Atelectasis; N41.0 Acute prostatitis; E87.8 Other disorders of electrolyte and fluid balance, not elsewhere classified; Z28.310 Unvaccinated for COVID-19; N40.1 Benign prostatic hyperplasia with lower urinary tract symptoms; R33.8 Other retention of urine; M94.0 Chondrocostal junction syndrome [Tietze]; Z79.899 Other long term (current) drug therapy; Z87.440 Personal history of urinary (tract) infections; Z88.1 Allergy status to other antibiotic agents
CPT/HCPCS: 36415; 71045; 71046; 71250; 71275; 74174; 80048; 80053; 80202; 81003; 83605; 83690; 83735; 84145; 84484; 85025; 85027; 85379; 85610; 85730; 87040; 87070; 87449; 87491; 87591; 87636; 93005; 93306; 94640; 94760; 96361; 96365; 96366; 96367; 96375; 96376; 99291

== ENCOUNTER 2024-05-23 18:02 | Inpatient (IN) | payer BC ==
[2024-05-23] MEDS ORDERED: HEPARIN SODIUM 1,000 UN/ML (10ML VL) IV PRN (18:28)
--- NOTE | 2024-05-23 18:32 | ED ---
General Adult HPI - General Chief complaint: Shortness of Breath Stated complaint: PE Time Seen by Provider: 05/23/24 18:06 Source: patient, RN notes reviewed Mode of arrival: ambulatory Limitations: no limitations - History of Present Illness Initial comments: Patient is a 53-year-old male presenting to the emergency department with shortness of breath. Patient does have history of BPH followed with kidney infection followed by pneumonia. Patient had continued symptoms and followed up with pulmonary. Outpatient CT scan concern for pulmonary embolism on the right side today. Patient does still have dyspnea that does worsen with exertion otherwise mild at rest. No chest pain. - Related Data Home Medications Medication Instructions Recorded Confirmed Tamsulosin [Flomax] 0.4 mg PO HS 03/19/24 05/23/24 Allergies Allergy/AdvReac Type Severity Reaction Status Date / Time cefpodoxime AdvReac Chest Pain Verified 05/23/24 19:20 Review of Systems ROS Statement: Those systems with pertinent positive or pertinent negative responses have been documented in the HPI. ROS Other: All systems not noted in ROS Statement are negative. Constitutional: Denies: fever Eyes: Denies: eye pain ENT: Denies: ear pain Respiratory: Reports: as per HPI, dyspnea Cardiovascular: Denies: chest pain Endocrine: Denies: fatigue Gastrointestinal: Denies: abdominal pain Past Medical History Additional Past Medical History / Comment(s): BPH with IDC History of Any Multi-Drug Resistant Organisms: None Reported Past Surgical History: No Surgical Hx Reported Past Psychological History: No Psychological Hx Reported Smoking Status: Never smoker Past Alcohol Use History: None Reported Past Drug Use History: None Reported - Past Family History Father Family Medical History: Coronary Artery Disease (CAD), Myocardial Infarction ([place]) Mother Family Medical History: Cancer, Coronary Artery Disease (CAD), Myocardial Infarction ([place]) Additional Family Medical History / Comment(s): ovarian cancer General Exam Limitations: no limitations General appearance: alert, in no apparent distress Head exam: Present: normocephalic Eye exam: Present: normal appearance Neck exam: Present: normal inspection Respiratory exam: Present: normal lung sounds bilaterally Cardiovascular Exam: Present: regular rate, normal rhythm GI/Abdominal exam: Present: soft. Absent: tenderness Extremities exam: Present: normal inspection. Absent: pedal edema, calf tenderness Neurological exam: Present: alert Psychiatric exam: Present: normal affect, normal mood Skin exam: Present: normal color Course Vital Signs 05/23/24 05/23/24 05/23/24 18:02 18:51 18:52 Temperature 97.8 F 98.6 F Pulse Rate 86 105 H Respiratory 16 18 18 Rate Blood Pressure 151/96 122/96 O2 Sat by Pulse 97 97 Oximetry EKG Findings - EKG Results: EKG: interpreted by YUSUF, sinus rhythm, normal axis, normal QRS, normal ST/T Medical Decision Making - Medical Decision Making MDM back was pt. sent in by a medical professional or institution (, [facility], VOCATIONAL NURSE LVN, urgent care, hospital, or retirement...) When possible be specific @ -Patient was sent in by Dr. Grey to Did you speak to anyone other than the patient for history (EMS, parent, family, police, friend...)? What history was obtained from this source @ -Was discussed with Dr. Paulson and who did review CT scan and has concern for embolism patient admitted with Did you review nursing and triage notes (agree or disagree)? Why? @ -I reviewed and agree with nursing and triage notes Were old charts reviewed (outside hosp., previous admission, EMS record, old EKG, old radiological studies, urgent care reports/EKG's, retirement records)? Report findings @ -Previous admission reviewed Differential Diagnosis (chest pain, altered mental status, abdominal pain women, abdominal pain men, vaginal bleeding, weakness, fever, dyspnea, syncope, headache, dizziness, GI bleed, back pain, seizure, CVA, palpatations, mental health, musculoskeletal)? @ -[facility] differential disc EKG interpreted by me (3pts min.). @ -As above X-rays interpreted by me (1pt min.). @ -None done CT interpreted by me (1pt min.). @ -None done U/S interpreted by me (1pt. min.). @ -None done What testing was considered but not performed or refused? (CT, X-rays, U/S, labs)? Why? @ -None What meds were considered but not given or refused? Why? @ -None Did you discuss the management of the patient with other professionals (professionals i.e. , KRISTI, VOCATIONAL NURSE LVN, lab, RT, psych nurse, director of social work, customer support specialist, teacher, duty officer, telephonic case manager)? Give summary @ - who would like patient admitted with heparin Case also discussed with practitioner Adelina Vann who will admit covering Was smoking cessation discussed for >3mins.? @ -No Was critical care preformed (if so, , covering for hospital call.how long)? @ -31 minutes critical care Were there social determinants of health that impacted care today? How? (Homelessness, low income, unemployed, alcoholism, drug addiction, transportation, low edu. Level, literacy, decrease access to med. care, m[facility], rehab)? @ -No Was there de-escalation of care discussed even if they declined (Discuss DNR or withdrawal of care, Hospice)? DNR status @ -No What co-morbidities impacted this encounter? (DM, HTN, Smoking, COPD, CAD, Cancer, CVA, ARF, Chemo, Hep., AIDS, mental health diagnosis, sleep apnea, morbid obesity)? @ -Hospitalization Was patient admitted / discharged? Hospital course, mention meds given and route, prescriptions, significant lab abnormalities, going to OR and other per tinent info. @ -Patient presents with dyspnea and positive pulmonary embolism. IV heparin ordered. Patient will be admitted, admission orders written Undiagnosed new problem with uncertain prognosis? @ -No Drug Therapy requiring intensive monitoring for toxicity (Heparin, Nitro, Insulin, Cardizem)? @ -IV heparin Were any procedures done? @ -No Diagnosis/symptom? @ -Pulmonary embolism Acute, or Chronic, or Acute on Chronic? @ -@Acute Uncomplicated (without systemic symptoms) or Complicated (systemic symptoms)? @ -Default Side effects of treatment? @ -No Exacerbation, Progression, or Severe Exacerbation? @ -No Poses a threat to life or bodily function? How? (Chest pain, [place], [place], pneumonia, PE, COPD, DKA, ARF, appy, cholecystitis, CVA, Diverticulitis, Homicidal, Suicidal, threat to staff... and all critical care pts) @ -To pulmonary function o - Lab Data Result diagrams: 05/23/24 18:33 05/23/24 18:33 Lab Results 05/23/24 05/23/24 05/23/24 Range/Units 18:33 18:33 18:33 WBC 9.4 (3.8-10.6) k/uL RBC 5.67 (4.30-5.90) m/uL Hgb 16.8 (13.0-17.5) gm/dL Hct 48.9 (39.0-53.0) % MCV 86.3 (80.0-100.0) fL MCH 29.7 (25.0-35.0) pg MCHC 34.4 (31.0-37.0) g/dL RDW 13.7 (11.5-15.5) % Plt Count 184 (150-450) k/uL MPV 7.6 Neutrophils % 71 % Lymphocytes % 19 % Monocytes % 6 % Eosinophils % 1 % Basophils % 0 % Neutrophils # 6.7 (1.3-7.7) k/uL Lymphocytes # 1.8 (1.0-4.8) k/uL Monocytes # 0.6 (0-1.0) k/uL Eosinophils # 0.1 (0-0.7) k/uL Basophils # 0.0 (0-0.2) k/uL PT 11.2 (10.0-12.5) sec INR 1.0 (<1.2) APTT 25.1 (22.0-30.0) sec Sodium 138 (137-145) mmol/L Potassium 4.9 (3.5-5.1) mmol/L Chloride 103 (98-107) mmol/L Carbon Dioxide 20 L (22-30) mmol/L Anion Gap 15 mmol/L BUN 15 (9-20) mg/dL Creatinine 0.99 (0.66-1.25) mg/dL Est GFR (CKD-EPI)AfAm >90 (>60 ml/min/1.73 sqM) Est GFR (CKD-EPI)NonAf 88 (>60 ml/min/1.73 sqM) Glucose 116 H (74-99) mg/dL Calcium 9.4 (8.4-10.2) mg/dL Total Bilirubin 0.8 (0.2-1.3) mg/dL AST 33 (17-59) U/L ALT 30 (4-49) U/L Alkaline Phosphatase 85 (38-126) U/L Troponin I (0.000-0.034) ng/mL Total Protein 7.4 (6.3-8.2) g/dL Albumin 4.6 (3.5-5.0) g/dL 05/23/24 Range/Units 18:33 WBC (3.8-10.6) k/uL RBC (4.30-5.90) m/uL Hgb (13.0-17.5) gm/dL Hct (39.0-53.0) % MCV (80.0-100.0) fL MCH (25.0-35.0) pg MCHC (31.0-37.0) g/dL RDW (11.5-15.5) % Plt Count (150-450) k/uL MPV Neutrophils % % Lymphocytes % % Monocytes % % Eosinophils % % Basophils % % Neutrophils # (1.3-7.7) k/uL Lymphocytes # (1.0-4.8) k/uL Monocytes # (0-1.0) k/uL Eosinophils # (0-0.7) k/uL Basophils # (0-0.2) k/uL PT (10.0-12.5) sec INR (<1.2) APTT (22.0-30.0) sec Sodium (137-145) mmol/L Potassium (3.5-5.1) mmol/L Chloride (98-107) mmol/L Carbon Dioxide (22-30) mmol/L Anion Gap mmol/L BUN (9-20) mg/dL Creatinine (0.66-1.25) mg/dL Est GFR (CKD-EPI)AfAm (>60 ml/min/1.73 sqM) Est GFR (CKD-EPI)NonAf (>60 ml/min/1.73 sqM) Glucose (74-99) mg/dL Calcium (8.4-10.2) mg/dL Total Bilirubin (0.2-1.3) mg/dL AST (17-59) U/L ALT (4-49) U/L Alkaline Phosphatase (38-126) U/L Troponin I <0.012 (0.000-0.034) ng/mL Total Protein (6.3-8.2) g/dL Albumin (3.5-5.0) g/dL Critical Care Time Critical Care Time: Yes Disposition Clinical Impression: Pulmonary embolism Disposition: ADMITTED IP TO THIS [facility] Is patient prescribed a controlled substance at d/c from ED?: No Time of Disposition: 19:37
[2024-05-23 18:45] LABS: Basophils % (A) 0 %; Eosinophils # (A) 0.1 k/uL (0-0.7); Eosinophils % (A) 1 %; HCT 48.9 % (39.0-53.0); HGB 16.8 gm/dL (13.0-17.5); Lymphocytes # (A) 1.8 k/uL (1.0-4.8); Lymphocytes % (A) 19 %; MCH 29.7 pg (25.0-35.0); MCHC 34.4 g/dL (31.0-37.0); MCV 86.3 fL (80.0-100.0); Mean Platelet Volume 7.6; Monocytes # (A) 0.6 k/uL (0-1.0); Monocytes % (A) 6 %; Neutrophils # (A) 6.7 k/uL (1.3-7.7); Neutrophils % (A) 71 %; Platelet Count 184 k/uL (150-450); RBC 5.67 m/uL (4.30-5.90); RDW 13.7 % (11.5-15.5); WBC 9.4 k/uL (3.8-10.6)
[2024-05-23] MEDS: HEPARIN SODIUM 1,000 UN/ML (10ML VL) IV ONE (18:45)
[2024-05-23] MEDS: HEPARIN SOD,PORK IN 0.45% NACL 25,000 UNIT in 0.45% NACL 1 250ML.BAG IV SCH (18:46)
[2024-05-23 19:02] LABS: Partial Thromboplastin Time 25.1 sec (22.0-30.0); Prothrombin Time 11.2 sec (10.0-12.5)
[2024-05-23 19:11] LABS: ALT 30 U/L (4-49); African American GFR (CKD) >90 (>60 ml/min/1.73 sqM); Albumin 4.6 g/dL (3.5-5.0); Anion Gap 15 mmol/L; Blood Urea Nitrogen 15 mg/dL (9-20); Calcium 9.4 mg/dL (8.4-10.2); Carbon Dioxide 20 mmol/L (22-30); Chloride 103 mmol/L (98-107); Glucose 116 mg/dL (74-99); Non-African American GFR(CKD) 88 (>60 ml/min/1.73 sqM); Sodium 138 mmol/L (137-145); Total Bilirubin 0.8 mg/dL (0.2-1.3); Total Protein 7.4 g/dL (6.3-8.2)
[2024-05-23 19:14] LABS: AST 33 U/L (17-59); Potassium 4.9 mmol/L (3.5-5.1)
[2024-05-23 19:15] LABS: Alkaline Phosphatase 85 U/L (38-126)
[2024-05-23] MEDS ORDERED: ACETAMINOPHEN TAB 325 MG TAB PO PRN (19:18)
[2024-05-23] MEDS ORDERED: MELATONIN 3 MG TABLET PO PRN (19:18)
[2024-05-23] MEDS ORDERED: NALOXONE 0.4 MG/ML 1 ML VIAL IV PRN (19:18)
[2024-05-23] MEDS: SODIUM CHLORIDE 0.9% 1,000 ML IV SCH (19:32)
--- NOTE | 2024-05-23 19:57 | US ---
EXAMINATION TYPE: US venous doppler duplex LE BI DATE OF EXAM: 05/23/2024 7:20 PM COMPARISON: NONE CLINICAL INDICATION: Male, 53 years old with history of thrombus; PE SIDE PERFORMED: Bilateral TECHNIQUE: The lower extremity deep venous system is examined utilizing real time linear array sonog sal with graded compression, doppler sonography and color-flow sonography. VESSELS IMAGED: Common Femoral Vein Deep Femoral Vein Greater Saphenous Vein * Femoral Vein Popliteal Vein Small Saphenous Vein * Proximal Calf Veins (* superficial vessels) Right Leg: Appears negative for DVT today Left Leg: Appears negative for DVT today IMPRESSION: Grayscale, color doppler, spectral doppler imaging performed of the deep veins of the lo wer extremities. There is normal flow, compressibility, vascular waveforms.
[2024-05-23] MEDS: TAMSULOSIN 0.4 MG CAP.ER.24H PO SCH (20:22)
[2024-05-23] MEDS: FAMOTIDINE 20 MG TAB PO SCH (20:23)
--- NOTE | 2024-05-24 05:30 | P.CNPUL ---
History of Present Illness Consult date: 05/24/24 Requesting physician: Gordo Gardner Reason for consult: pulmonary embolism Chief complaint: Severe right-sided chest pain History of present illness: Patient is a 53-year-old white male with past medical history significant for BPH, UTI. Of note, patient was just recently treated inpatient at our facility for left-sided pneumonia in March. He did initially follow up in the pulmonary office with Dr. Henson. Yesterday, patient took a bike ride. He cut his grass. While working on his daughter's car developed severe lateral right sided chest pain with some radiation to the right posterior thoracic level back. No associated shortness of breath, coughing, hemoptysis. No palpitations or syncop al events. No infectious symptoms such as fevers, cough, sputum production. He reached back out to the pulminary office, and Dr. Henson recommended a CTA of the chest, which demonstrated multiple right-sided segmental and subsegmental pulmonary emboli. No CT evidence of right-sided heart strain. No signs of clinical instability. He was emergently directed to the ED. Patient is currently being evaluated in the ER, room 15. He is largely asymptomatic. Spo2 98% on room air. Blood pressure is normotensive. Nontachycardic. High intensity heparin infusing per protocol. Denies any personal or familial history of blood clots. Denies recent surgical procedures. Has had recent hospitalization as reported above. Denies unilateral lower extremity edema or pain. Venous Doppler bilateral lower extremities negative for DVT. CBC: WBC count 23.9 hemoglobin 14.1, hematocrit 44, platelets 273. INR 1. Baseline aPTT 25.1. CMP: Sodium 138, potassium 4.9, chloride 103, serum bicarb 20, BUN 15, creatinine 0.99, glucose 116. LFTs unremarkable. Troponin less than 0.012.. Hemodynamics are stable. Review of Systems Constitutional: Denies chills, Denies fever, Denies poor appetite, Denies weight gain, Denies weight loss Ears, nose, mouth and throat: Denies headache, Denies nasal congestion, Denies post-nasal drip, Denies sinus pressure, Denies sore throat Cardiovascular: Reports chest pain, Denies dyspnea on exertion, Denies edema, Denies palpitations, Denies shortness of breath, Denies syncope Respiratory: Reports pain on inspiration, Denies cough, Denies cough with s putum, Denies dyspnea, Denies hemoptysis, Denies wheezing Gastrointestinal: Denies abdominal pain, Denies constipation, Denies diarrhea, Denies nausea, Denies vomiting Genitourinary: Denies dysuria, Denies flank pain, Denies incontinence, Denies urinary frequency, Denies urinary retention Musculoskeletal: Denies leg numbness/tingling, Denies limitation of motion Integumentary: Denies rash Neurological: Denies change in speech, Denies confusion, Denies head injury, Denies headaches, Denies lack of coordination, Denies seizures, Denies syncope, Denies visual changes Psychiatric: Denies anxiety, Denies depression Past Medical History Additional Past Medical History / Comment(s): BPH with IDC, PE 05/23/24 History of Any Multi-Drug Resistant Organisms: None Reported Past Surgical History: No Surgical Hx Reported Smoking Status: Never smoker - Past Family History Father Family Medical History: Coronary Artery Disease (CAD), Myocardial Infarction ([place]) Mother Family Medical History: Cancer, Coronary Artery Disease (CAD), Myocardial Infarction ([place]) Additional Family Medical History / Comment(s): ovarian cancer Medications and Allergies Home Medications Medication Instructions Recorded Confirmed Type Tamsulosin [Flomax] 0.4 mg PO HS 03/19/24 05/23/24 History Allergies Allergy/AdvReac Type Severity Reaction Status Date / Time cefpodoxime AdvReac Chest Pain Verified 05/23/24 19:20 Physical Exam Vitals: Vital Signs Temp Pulse Pulse Resp BP BP Pulse Ox 05/24/24 00:11 83 16 115/81 05/23/24 20:47 83 18 135/95 96 05/23/24 19:30 100 16 135/97 96 05/23/24 18:52 18 05/23/24 18:51 98.6 F 105 H 18 122/96 97 05/23/24 18:02 97.8 F 86 16 151/96 97 Intake and Output 05/23/24 05/23/24 05/24/24 14:59 22:59 06:59 Other: Weight 111.13 kg GENERAL EXAM: Alert, 53-year-old white male, comfortable in no apparent distress. HEAD: Normocephalic and atraumatic EYES: Normal reaction of pupils, equal size. NOSE: Clear with pink turbinates. THROAT: No erythema or exudates. NECK: No masses, no JVD. CHEST: No chest wall deformity. LUNGS: Equal air entry with no crackles, wheeze, rhonchi or dullness. On room air. No conversational dyspnea or accessory muscle use.. CVS: S1 and S2 normal with no audible murmur, regular rhythm. No extra heart sounds ABDOMEN: No hepatosplenomegaly, active bowel sounds, no guarding or rigidity. SPINE: No scoliosis or deformity SKIN: No rashes CENTRAL NERVOUS SYSTEM: No focal deficits, tone is normal in all 4 extremities. EXTREMITIES: There is no peripheral edema, clubbing, or cyanosis. Peripheral pulses are intact. Results - Laboratory Findings CBC and BMP: 05/23/24 18:33 05/23/24 18:33 PT/INR, D-dimer PT 11.2 sec (10.0-12.5) 05/23/24 18:33 INR 1.0 (<1.2) 05/23/24 18:33 Abnormal lab findings: Abnormal Labs 05/23/24 18:33 Carbon Dioxide 20 L Glucose 116 H - Diagnostic Findings CT scan - chest: image reviewed Assessment and Plan Assessment: Multiple segmental and subsegmental, predominately right sided, pulmonary emboli. Some are non-obstructing, possibly consistent with subacute thrombus. No CT evidence of right-sided heart strain. Right-sided chest pain, secondary to above Recent hospitalization for left-sided pneumonia, follow-up chest CT shows resolution of previously seen bibasilar infiltrates. History of obstructive uropathy/BPH History of prostatitis Plan: Medications, labs, imaging reviewed Currently on room air, SpO2 reading 98% Patient continues on the high intensity heparin protocol APTT checks per protocol No CTA evidence of right-sided heart strain No signs of clinical instability Patient will likely be transitioned to DOAC later this morning, and will continue for 3 to 6 months We will continue to follow I have personally seen and examined the patient, performed the documentation and the assessment and plan as written. Number of minutes spent on the visit:20 Time with Patient: Greater than 30
--- NOTE | 2024-05-24 10:12 | P.HPIM ---
History of Present Illness 53-year-old male he is transferred because of a pulmonary what is him. Patient pleasant admitted with chest pain on the left side and had a CT angio of the chest which demonstrated multiple right sided segmental and subsegmental pulmonary emboli. Patient is saturating well at this time patient has some shortness of breath. Not tachycardic troponin is negative echocardiogram is ordered for right ventricular strain patient does not have any fever chills patient was hospitalized in month of March for pneumonia and for UTI before that patient does have benign prostatic hypertrophy. Patient on IV heparin at this time. Patient denied any recent weight loss did not get his screening colonoscopy yet is not a smoker denied any recent travel patient is mostly functional ambulatory. Patient is obese with BMI of 34. REVIEW OF SYSTEMS: All other systems are negative except those mentioned in the HPI PHYSICAL EXAMINATION: GENERAL: The patient is alert and oriented x3, not in any acute distress. Well developed, well nourished. HEENT: Pupils are round and equally reacting to light. EOMI. No scleral icterus. No conjunctival pallor. Normocephalic, atraumatic. No pharyngeal erythema. No thyromegaly. CARDIOVASCULAR: S1 and S2 present. No murmurs, rubs, or gallops. PULMONARY: Chest is clear to auscultation, no wheezing or crackles. ABDOMEN: Soft, nontender, nondistended, normoactive bowel sounds. No palpable organomegaly. MUSCULOSKELETAL: No joint swelling or deformity. EXTREMITIES: No cyanosis, clubbing, or pedal edema. NEUROLOGICAL: Gross neurological examination did not reveal any focal deficits. SKIN: No rashes. Assessment and plan -Acute pulmonary embolism in the right side: Etiology of PE is not known patient will need anticoagulation for 6 months followed by testing for procoagulant conditions. Patient on IV heparin echocardiogram is being obtained to rule out any right ventricular strain pattern -Benign prostatic hypertrophy: Patient will be resumed on tamsulosin DVT prophylaxis: Patient is on IV heparin at this time Past Medical History Additional Past Medical History / Comment(s): BPH with IDC, PE 05/23/24 History of Any Multi-Drug Resistant Organisms: None Reported Past Surgical History: No Surgical Hx Reported Smoking Status: Never smoker - Past Family History Father Family Medical History: Coronary Artery Disease (CAD), Myocardial Infarction (AL) Mother Family Medical History: Cancer, Coronary Artery Disease (CAD), Myocardial Infarction (AL) Additional Family Medical History / Comment(s): ovarian cancer Medications and Allergies Home Medications Medication Instructions Recorded Confirmed Type Tamsulosin [Flomax] 0.4 mg PO HS 03/19/24 05/23/24 History Allergies Allergy/AdvReac Type Severity Reaction Status Date / Time cefpodoxime AdvReac Chest Pain Verified 05/23/24 19:20 Physical Exam Vitals: Vital Signs Temp Pulse Pulse Resp BP BP Pulse Ox 05/24/24 08:47 98.4 F 89 16 129/90 96 05/24/24 03:28 75 16 119/82 98 05/24/24 00:11 83 16 115/81 05/23/24 20:47 83 18 135/95 96 05/23/24 19:30 100 16 135/97 96 05/23/24 18:52 18 05/23/24 18:51 98.6 F 105 H 18 122/96 97 05/23/24 18:02 97.8 F 86 16 151/96 97 Intake and Output 05/23/24 05/24/24 05/24/24 22:59 06:59 14:59 Intake Total 154.69 58.345 Balance 154.69 58.345 Intake: Intake, IV Titration 154.69 58.345 Amount Heparin Sod,Pork in 0.45% 154.69 58.345 NaCl 25,000 unit In 0.45 % NaCl 1 250ml.bag @ 18 UNITS/KG/HR 20.003 mls/hr IV .[id number] [facility] Rx#: [id number] Other: # Voids 1 Weight 111.13 kg Results CBC & Chem 7: 05/23/24 18:33 05/23/24 18:33 Labs: Abnormal Lab Results - Last 24 Hours (Table) 05/23/24 05/24/24 Range/Units 18:33 00:30 APTT 119.1 H* (22.0-30.0) sec Carbon Dioxide 20 L (22-30) mmol/L Glucose 116 H (74-99) mg/dL Thrombosis Risk Factor Assmnt - Choose All That Apply Any of the Below Risk Factors Present?: Yes Each Factor Represents 1 point: Obesity (BMI >25) Other Risk Factors: No Other congenital or acquired thrombophilia - If yes, enter type in comment: No Thrombosis Risk Factor Assessment Total Risk Factor Score: 1 Thrombosis Risk Factor Assessment Level: Low Risk
[2024-05-24 10:28] LABS: Basophils % (A) 1 %; Eosinophils # (A) 0.1 k/uL (0-0.7); Eosinophils % (A) 1 %; HCT 51.7 % (39.0-53.0); HGB 17.2 gm/dL (13.0-17.5); Lymphocytes # (A) 1.8 k/uL (1.0-4.8); Lymphocytes % (A) 24 %; MCH 29.3 pg (25.0-35.0); MCHC 33.4 g/dL (31.0-37.0); MCV 87.8 fL (80.0-100.0); Mean Platelet Volume 7.4; Monocytes # (A) 0.6 k/uL (0-1.0); Monocytes % (A) 8 %; Neutrophils # (A) 4.9 k/uL (1.3-7.7); Neutrophils % (A) 65 %; Platelet Count 192 k/uL (150-450); RBC 5.89 m/uL (4.30-5.90); RDW 13.3 % (11.5-15.5); WBC 7.5 k/uL (3.8-10.6)
--- NOTE | 2024-05-24 16:58 | CA ---
Transthoracic Echo Report Name: Fer Head Age: 53 Gender: M : 1970 Exam Date: 05/24/2024 11:04 Exam Location: [facility] Ht (in): 71 Wt (lb): 245 Ordering Physician: Asha Watkins Attending/Referring Phys: Report Checker Cynthia Mathews RDCS Procedure CPT: Indications: PE, ? right heart strain Cardiac Hx: Technical Quality: Good Contrast 1: Total Dose (mL): Contrast 2: Total Dose (mL): MEASUREMENTS (Male / Female) Normal Values 2D ECHO LV Diastolic Diameter PLAX 4.9 cm 4.2 - 5.9 / 3.9 - 5.3 cm LV Systolic Diameter PLAX 3.4 cm IVS Diastolic Thickness 1.1 cm 0.6 - 1.0 / 0.6 - 0.9 cm LVPW Diastolic Thickness 1.1 cm 0.6 - 1.0 / 0.6 - 0.9 cm LV Relative Wall Thickness 0.5 RV Internal Dim ED PLAX 4.3 cm LA Systolic Diameter LX 3.9 cm 3.0 - 4.0 / 2.7 - 3.8 cm LA Volume 57.3 cm??? 18 - 58 / 22 - 52 cm??? LA Volume Index 23.9 cm???/m??? 16 - 28 cm???/m??? M-MODE Aortic Root Diameter MM 3.7 cm AV Cusp Separation MM 2.6 cm DOPPLER MV Area PHT 3.4 cm??? Mitral E Point Velocity 66.5 cm/s Mitral A Point Velocity 78.6 cm/s Mitral E to A Ratio 0.8 MV Deceleration Time 224.7 ms FINDINGS Left Ventricle Left ventricular ejection fraction is estimated at 55-60 %. Left ventricular cavity size normal. Mildly increased septal wall thickness. Right Ventricle Severe right ventricular dilatation. Unable to estimate the right ventricular systolic pressure. Right Atrium Normal right atrial size. No right atrial thrombus or mass seen. Left Atrium Normal left atrial size. No left atrial thrombus or mass present. Mitral Valve Structurally normal mitral valve. No mitral stenosis, regurgitation or prolapse. Aortic Valve Trileaflet aortic valve. No aortic valve stenosis or regurgitation. Tricuspid Valve Structurally normal tricuspid valve. No tricuspid stenosis, regurgitation or prolapse. Pulmonic Valve Structurally normal pulmonic valve. No pulmonic regurgitation. Pericardium No pericardial or pleural effusion. Aorta Normal size aortic root and proximal ascending aorta. CONCLUSIONS Normal LV function Previewed by: Dr. Chapo Freeman MD (Electronically Signed) Final Date: 24 May 2024 16:57
[2024-05-24 20:48] VITALS: RESP 16
[2024-05-25 10:54] VITALS: TEMP 98
[2024-05-25] MEDS: Apixaban Initiation Dose--VTE 5 MG TAB PO SCH (11:33)
[2024-05-25] MEDS: PANTOPRAZOLE 40 MG TABLET PO SCH (11:36)
[2024-05-25 14:28] VITALS: BP 136/74; PULSE 87
--- NOTE | 2024-05-25 15:33 | P.PN ---
Subjective Progress Note Date: 05/25/24 Patient is a 53-year-old white male with past medical history significant for BPH, UTI. Of note, patient was just recently treated inpatient at our facility for left-sided pneumonia in March. He did initially follow up in the pulmonary office with Dr. Henson. Yesterday, patient took a bike ride. He cut his grass. While working on his daughter's car developed severe lateral right sided chest pain with some radiation to the right posterior thoracic level back. No associated shortness of breath, coughing, hemoptysis. No palpitations or syncopal events. No infectious symptoms such as fevers, cough, sputum production. He reached back out to the pulminary office, and Dr. Henson recommended a CTA of the chest, which demonstrated multiple right-sided segmental and subsegmental pulmonary emboli. No CT evidence of right-sided heart strain. No signs of clinical instability. He was emergently directed to the ED. Patient is currently being evaluated in the ER, room 15. He is largely asymptomatic. Spo2 98% on room air. Blood pressure is normotensive. Nontachycardic. High intensity heparin infusing per protocol. Denies any personal or familial history of blood clots. Denies recent surgical procedures. Has had recent hospitalization as reported above. Denies unilateral lower extremity edema or pain. Venous Doppler bilateral lower extremities negative for DVT. CBC: WBC count 23.9 hemoglobin 14.1, hematocrit 44, platelets 273. INR 1. Baseline aPTT 25.1. CMP: Sodium 138, potassium 4.9, chloride 103, serum bicarb 20, BUN 15, creatinine 0.99, glucose 116. LFTs unremarkable. Troponin less than 0.012.. Hemodynamics are stable. The patient is seen today May 25, 2024 in follow-up on the selective care unit. He is currently sitting up at the bedside. Awake and alert in no acute distress. He denies any worsening shortness of breath, cough or congestion. No chest pain. No hemoptysis. He has been transition to [facility]. He is maintaining good O2 saturations in the 90s on room air. He is afebrile. Hemodynamically stable. Objective - Vital Signs Vital signs: Vital Signs Temp 98.0 F 05/25/24 08:00 Pulse 87 05/25/24 12:00 Resp 16 05/25/24 12:00 BP 136/74 05/25/24 12:00 Pulse Ox 97 05/25/24 12:00 FiO2 Intake & Output 05/24/24 05/25/24 05/25/24 18:59 06:59 18:59 Intake Total 58.345 250 236 Balance 58.345 250 236 Weight 113.4 kg Intake: Intake, IV Titration 58.345 250 Amount Heparin Sod,Pork in 0.45% 58.345 250 NaCl 25,000 unit In 0.45 % NaCl 1 250ml.bag @ 18 UNITS/KG/HR 20.003 mls/hr IV .[id number] [facility] Rx#: [id number] Oral 236 Other: # Voids 4 - Exam GENERAL EXAM: Alert, active, pleasant 53-year-old male, on room air, comfortable in no apparent distress. HEAD: Normocephalic. EYES: Normal reaction of pupils, equal size. NOSE: Clear with pink turbinates. THROAT: No erythema or exudates. NECK: No masses, no JVD. CHEST: No chest wall deformity. LUNGS: Equal air entry with no crackles, wheeze, rhonchi or dullness. CVS: S1 and S2 normal with no audible murmur, regular rhythm. ABDOMEN: No hepatosplenomegaly, normal bowel sounds, no guarding or rigidity. SPINE: No scoliosis or deformity SKIN: No rashes CENTRAL NERVOUS SYSTEM: No focal deficits, tone is normal in all 4 extremities. EXTREMITIES: There is no peripheral edema. No clubbing, no cyanosis. Peripheral pulses are intact. - Labs CBC & Chem 7: 05/24/24 10:02 05/23/24 18:33 Labs: Abnormal Lab Results - Last 24 Hours (Table) 05/25/24 Range/Units 08:41 APTT 52.1 H (22.0-30.0) sec Assessment and Plan Assessment: Multiple segmental and subsegmental, predominately right sided, pulmonary emboli. Some are non-obstructing, possibly consistent with subacute thrombus. No CT evidence of right-sided heart strain Right-sided chest pain, secondary to above, improved Recent hospitalization for left-sided pneumonia, follow-up chest CT shows reso lution of previously seen bibasilar infiltrates History of obstructive uropathy/BPH History of prostatitis Plan: The patient was seen and evaluated Labs and medications reviewed Being transitioned to Eliquis Recommend lifelong therapy Stable and on room air Cleared for discharge from the pulmonary standpoint Follow-up in our office in 1 week I have personally seen and examined the patient, performed the documentation and the assessment and plan as written. Number of minutes spent on the visit: 10.
--- NOTE | 2024-05-28 12:56 | P.DS ---
Providers Date of admission: 05/23/24 19:19 Attending physician: July Ye Consults: 05/23/24 19:18 Consult Physician Urgent Consulting Provider: Jackson David Consult Reason/Comments: pe Do you want consulting provider notified?: Yes Primary care physician: Stated None Hospital Course: Final Diagnosis -Acute pulmonary embolism in the right side: Etiology of PE is not known patient will need anticoagulation for 6 months followed by testing for procoagulant conditions -Benign prostatic hypertrophy: Patient will be resumed on tamsulosin -GERD Discharge Disposition Stable for discharge home. Patient is discharged on Eliquis 5 mg twice a day for the next 30 days as well as Protonix for GI prophylaxis. Patient to follow- up with his PCP Dr. Peter Salter in 1 to 2 days. Hospital Course 53-year-old male he is transferred because of a pulmonary what is him. Patient pleasant admitted with chest pain on the left side and had a CT angio of the chest which demonstrated multiple right sided segmental and subsegmental pulmonary emboli. Patient is saturating well at this time patient has some shortness of breath. Not tachycardic troponin is negative echocardiogram is ordered for right ventricular strain patient does not have any fever chills patient was hospitalized in month of March for pneumonia and for UTI before that patient does have benign prostatic hypertrophy. Patient on IV heparin at this time. Patient denied any recent weight loss did not get his screening colonoscopy yet is not a smoker denied any recent travel patient is mostly functional ambulatory. Patient is obese with BMI of 34. Patient was admitted to the hospital internal medicine with a consult placed to pulmonary services. Patient underwent echocardiogram reveals normal LV function and no evidence of right heart strain. Patient has been weaned to room air has been up ambulating without difficulty not reporting much shortness of breath at this time. He has been transition from IV heparin to an Eliquis which will continue for 3 to 6 months postdischarge patient is recommended to follow-up with pulmonary in the office as well as hematology. Please see medication reconciliation for a list of current medications. Thank you for allowing us to participate in the care of this patient. The impression and plan of care has been dictated by Chiqui Sellers Nurse Practitioner as directed. Dr. Cassi MD I have performed a history and physical examination and medical decision making of this patient, discussed the same with the dictator, and agree with the dictators assessment and plan as written, documented as a scribe. Based on total visit time, I have performed more than 50% of this visit. Patient Condition at Discharge: Stable Plan - Discharge Summary Discharge Rx Participant: No New Discharge Prescriptions: New Pantoprazole [Protonix] 40 mg PO AC-BRKFST #30 tab Apixaban [Eliquis] 5 mg PO BID 30 Days #74 tab Continue Tamsulosin [Flomax] 0.4 mg PO HS Discharge Medication List Tamsulosin [Flomax] 0.4 mg PO HS 03/19/24 [History] Apixaban [Eliquis] 5 mg PO BID 30 Days #74 tab 05/25/24 [Rx] Pantoprazole [Protonix] 40 mg PO AC-BRKFST #30 tab 05/25/24 [Rx] Follow up Appointment(s)/Referral(s): Chris Lopez MD [STAFF PHYSICIAN] - 1 Week (Hr Leader ) Peter Salter DO [STAFF PHYSICIAN] - 1-2 Days Ellyn Henson MD [STAFF PHYSICIAN] - 1 Week (Pulmonary ) Ambulatory/Diagnostic Orders: Complete Blood Count w/diff [LAB.AMB] Time Frame: 4 Days, Location: None Selected Patient Instructions/Handouts: Pulmonary Embolism (DC), GERD (Gastroesophageal Reflux Disease) (DC) Discharge/Stand Alone Forms: [facility] Area PCPs Discharge Disposition: HOME SELF-CARE
== END 2024-05-25 13:58 | disposition home or self-care (01) | DRG 176 ==
LOC: EC 18:02 → 3SCARD 19:19
PROVIDERS: ADMIT Internal Medicine; ATTEND Internal Medicine
DX: I26.99 Other pulmonary embolism without acute cor pulmonale (principal); E66.9 Obesity, unspecified; Z68.34 Body mass index [BMI] 34.0-34.9, adult; K21.9 Gastro-esophageal reflux disease without esophagitis; N40.0 Benign prostatic hyperplasia without lower urinary tract symptoms
CPT/HCPCS: 36415; 80053; 84484; 85025; 85610; 85730; 93005; 93306; 93970; 96365; 96366; 99291

== ENCOUNTER → 2024-05-23 | Outpatient (CLI) | payer BC ==
--- NOTE | 2024-05-23 17:33 | CT ---
CTA CHEST EXAMINATION TYPE: CT angio chest DATE OF EXAM: 05/23/2024 INDICATION: CARIN CT DLP: 467.1 mGycm, Automated exposure control for dose reduction was used. CONTRAST: Patient injected with 95 cc mL of Isovue 370. COMPARISON: 03/20/2024 TECHNIQUE: CT of the chest is performed on a spiral scan at 2 mm thick sections. Study is performed with intravenous contrast timed for evaluation for pulmonary embolism. This will limit additional po rtions of the evaluation. 3-D MIP images reconstructed by the technologist are reviewed on the compu ter in the coronal and sagittal planes. FINDINGS: There are multiple thrombus within the secondary and tertiary pulmonary arteries, These are predomina ntly on the right. Some of these are nonobstructing suggesting this may be subacute or old thrombus. There are some pulmonary arteries with obstruction which suggests an acute component may be present. Preliminary results were provided to the physician at the time of interpretation. No mediastinal or hilar adenopathy enlarged by CT criteria is evident. The ascending aorta diameter at the level of the main pulmonary artery is 3.7 cm. The main pulmonary artery diameter at the bifurcation is 3.0 cm. Lung windows are clear. Limited CT sections were through the upper abdomen. Upper abdomen appears unremarkable. IMPRESSION: 1. Multiple right-sided pulmonary emboli. This may be subacute with incomplete obstruction of some pu lmonary vessels. An acute component may be present with obstructed pulmonary arteries.
== END | disposition home or self-care (01) ==
LOC: RADCTMAIN 16:14
PROVIDERS: ATTEND Internal Medicine Critical Care Medicine
DX: R06.02 Shortness of breath
CPT/HCPCS: 71275

== ENCOUNTER → 2024-05-31 | Outpatient (CLI) | payer BC ==
[2024-05-31 11:00] LABS: Basophils # (A) 0.03 X 10*3/uL (0.00-0.10); Basophils % (A) 0.5 %; Eosinophils # (A) 0.12 X 10*3/uL (0.04-0.35); Eosinophils % (A) 2.1 %; HCT 49.1 % (39.6-50.0); HGB 16.3 g/dL (13.0-17.0); Lymphocytes % (A) 28.5 %; MCH 28.9 pg (27.0-32.0); MCHC 33.2 g/dL (32.0-37.0); MCV 87.1 FL (80.0-97.0); Mean Platelet Volume 9.8 FL (9.5-12.2); Monocytes # (A) 0.53 X 10*3/uL (0.20-1.00); Monocytes % (A) 9.4 %; NRBC Per 100 WBC 0 X 10*3/uL (0.00-0.01); Neutrophils # (A) 3.31 X 10*3/uL (1.80-7.70); Neutrophils % (A) 59.1 %; Platelet Count 221 X 10*3/uL (140-440); RBC 5.64 X 10*6/uL (4.40-5.60); RDW 12.8 % (11.5-14.5); WBC 5.61 X 10*3/uL (4.50-10.00)
== END | disposition home or self-care (01) ==
LOC: LABWHC1 06:56
PROVIDERS: ATTEND Nurse Practitioner Family
DX: I26.99 Other pulmonary embolism without acute cor pulmonale (principal)
CPT/HCPCS: 36415; 85025

== ENCOUNTER → 2024-08-05 | Outpatient (CLI) | payer BC ==
--- NOTE | 2024-08-05 09:26 | MR ---
EXAMINATION TYPE: MR Prostate wo/w con DATE OF EXAM: 08/05/2024 8:21 AM COMPARISON: None. CLINICAL INDICATION: Male, 54 years old with history of R97.20 ELEVATED PROSTATE SPECIFIC ANTIGEN [PS A], Elevated PSA TECHNIQUE: Multi-planar, multi-sequence imaging of the pelvis is performed prior to and following the uncomplicated administration of bolus intravenous gadolinium. IV Contrast: 9 mL Gadobutrol Interpretive Criteria: PI-RADS v2.1 SERUM PSA: 06/2024=9.52 SURGICAL PATHOLOGY: No data available. FINDINGS: Prostatic dimensions: 5.1 x 4.9 x 3.4 cm. "Bullet" Volume:55.61 (PSA density=0.17 ng/mL/mL) CENTRAL GLAND (Central and Transition Zones/CZ+TZ): Multiple bilateral, heterogenous appearing hypertrophic stromal nodules, without suspicious lesion. ( PI-RADS 2) PERIPHERAL ZONE (PZ): Bilateral linear, indistinct wedgelike areas of low ADC, and low T2 signal, No evidence of masslike a bnormality, or localized perfusional hypervascularity, to further suggest a focus of clinically signi ficant prostate cancer. (PI-RADS 2) SEMINAL VESICLES (SV): Symmetric and unremarkable. PERIPROSTATIC TISSUES: Unremarkable. LYMPH NODES: No enlarged pelvic lymph node. REMAINING PELVIS: Bladder wall is within normal limits given distention. No abnormal free or organized intrapelvic fluid collection. No pathologic bowel dilation or mural thickening. No hernia visualized OSSEOUS STRUCTURES: No suspicious osseous abnormality. IMPRESSION: 1. No specific features for high-risk prostate cancer. Maximum PI-RADS score: 2. 2. Moderate BPH, estimated gland volume 55.61 mL. 3. No suspicious osseous lesion. No lymphadenopathy. No evidence of prostate adenocarcinoma involving the periprostatic tissues. [facility], , 08/05/2024 9:24 AM
== END | disposition home or self-care (01) ==
LOC: RADMRIMAIN 07:08
PROVIDERS: ATTEND Urology
DX: R97.20 Elevated prostate specific antigen [PSA] (principal); N40.0 Benign prostatic hyperplasia without lower urinary tract symptoms
CPT/HCPCS: 72197; A9585